=== PATIENT | female | born 2000 | race Caucasian/White ===

== ENCOUNTER 2019-01-14 17:09 | Emergency (ER) | payer MEDICAID, SELFPAY ==
[2019-01-14 17:11] VITALS: BP 132/80; PULSE 114; RESP 17; TEMP 36.7; O2SAT 98; BMI 25.6
--- NOTE | 2019-01-14 17:12 | NURSING ---
NO OLD EKGS
[2019-01-14 17:43] VITALS: O2SAT 100
--- NOTE | 2019-01-14 17:43 | EKG12_ITS ---
Test Reason : CP Blood Pressure : / mmHG Vent. Rate : 099 BPM Atrial Rate : 099 BPM P-R Int : 114 ms QRS Dur : 070 ms QT Int : 334 ms P-R-T Axes : 039 041 025 degrees QTc Int : 428 ms Normal sinus rhythm Low voltage QRS Borderline ECG Confirmed by NELLY HUNG ([id number]), photography editor JENNA GAFFNEY ([id number]) on 01/19/2019 2:47:34 PM Referred By: LUDA Confirmed By:KARIE HUNG
--- NOTE | 2019-01-14 17:53 | US_ITS ---
STUDY: VENOUS DOPPLER ULTRASOUND - RIGHT LOWER EXTREMITY REASON FOR EXAM: Female, 18 years old. Shortness of breath TECHNIQUE: Ultrasound evaluation of the deep vein system to include perrin-scale imaging and compression was performed. Perrin-scale imaging and Doppler sonographic evaluation, including duplex spectral analysis and qualitative color flow sonography, was performed. COMPARISON: None. FINDINGS: Common Femoral Vein: Normal compression, spontaneity and augmentation. Normal color Doppler. Common Femoral Vein/Greater Saphenous Junction: Normal compression, spontaneity and augmentation. Normal color Doppler. Deep Femoral Vein: Normal compression, spontaneity and augmentation. Normal color Doppler. Femoral Proximal: Normal compression, spontaneity and augmentation. Normal color Doppler. Femoral Middle: Normal compression, spontaneity and augmentation. Normal color Doppler. Femoral Distal: Normal compression, spontaneity and augmentation. Normal color Doppler. Popliteal Vein: Normal compression, spontaneity and augmentation. Normal color Doppler. Posterior Tibial Vein: Normal compression, spontaneity and augmentation. Normal color Doppler. Peroneal Vein: Normal compression, spontaneity and augmentation. Normal color Doppler. US/Venous Duplex Imag/Limited/Uni IMPRESSION: Normal venous Doppler ultrasound of the lower extremity. Electronically Signed: Jared Garza, at 19:02 EDT Tel , Service support ,
[2019-01-14 18:29] LABS: Absolute Lymphocyte Count 1.81 X10^3/ul (0.83-4.51); Absolute Neutrophil Count 8.6 X10^3/uL (2.0-7.7); Basophil# 0.01 X10^3/uL; Basophil% 0.1 % (0-1); Eosinophils% 0.9 % (0-5); Hematocrit 31.2 % (37-47); Hemoglobin 10.2 g/dl (12.0-15.0); Lymphocyte # 1.81 X10^3/ul (4.0); Lymphocyte % 15.6 % (19-41); Mean Corp Hgb Conc 32.7 g/gl (32-36); Mean Corpuscular Hgb 28.6 pg (27.0-32.0); Mean Corpuscular Volume 87.4 fL (81-99); Mean Platelet Vol. 9.9 fl (6.2-12.0); Monocyte# 1.03 X10^3/uL; Monocyte% 8.9 % (0-10); Neutrophil # 8.61 X10^3/uL (2.7-7.7); Neutrophil % 74.2 % (47-70); Platelet Count 187 K/mm3 (150-450); RBC Distribution Width CV 13.7 % (11.6-14.6); RBC Distribution Width SD 43.9 fl (35.1-43.9); Red Blood Count 3.57 M/mm3 (4.2-5.4); White Blood Count 11.6 K/mm3 (4.4-11.0)
[2019-01-14 18:33] LABS: POSITIVE COUNT NO; POSITIVE DIFFERENTIAL NO; POSITIVE MORPHOLOGY NO
[2019-01-14 18:53] LABS: Anion Gap 7 (5-15); BUN 6 mg/dL (7-18); BUN/Creat Ratio 11.9 RATIO (10-20); Calcium,Total 8.8 mg/dL (8.5-10.1); Chloride 107 mmol/L (98-107); EST Glomerular Filtration Rate 165 mL/min (>60); Est Glom Filt Rate - Afr Amer 199 mL/min (>60); Estimated Creatinine Clearance 181.05 ml/min; Glucose 87 mg/dL (74-106); Potassium 3.7 mmol/L (3.5-5.1); Sodium Level 138 mmol/L (136-145)
[2019-01-14 19:09] VITALS: BP 106/73; PULSE 95; RESP 10; O2SAT 97
--- NOTE | 2019-01-14 19:19 | ED.DCSUM_ITS ---
- ER Visit Summary Date of Service: 01/14/19 Chief Complaint: Right calf pain History of Present Illness: The patient is a 18 F patient has been waking up almost every night over the past month with right calf pain. She says it seems to be getting worse. Worse with walking. She did have some shortness of breath recently. She is 38 weeks . She was also having some chest pain today. No history of DVTs. No history of heart disease. No fevers or sputum. No trauma. Physical Examination: Afebrile and vital signs are unremarkable. 98% on room air. Heart rate 114. Patient appears in no acute distress. Heart tachycardic but regular appeared lungs clear. Abdomen gravid. Extremities nontender with no edema. Neurovascular intact. Skin appears normal. Test Results: Preliminary duplex ultrasound is negative for DVT. Patient refused chest x-ray. White count 11.6 and hemoglobin 10.2. Metabolic panel and troponin unremarkable. EKG showed sinus rhythm at a rate of 99. Emergency Department Course and Treatment: Patient had symptoms concerning for DVT. Her ultrasound was negative. This makes PE much less likely. Patient did not want any radiation because I could not guarantee 0 risk to her baby. She refused x-ray. I advised that the only way to check for PE would be imaging. Patient declined. She is reassured that there was no DVT. She thinks this might be muscle pain. I agree with her. I advised her that you can have a negative ultrasound but still developed a pulmonary embolism. Patient voiced understanding. She would like to follow-up with her doctor this upcoming week. I advised her to return if she has any new or worsening issues, chest pain, or shortness of breath. Treatment Plan: As above Disposition: Discharge Impression: 1. Right leg pain This note was generated with [employer] dictation software. It may contain incorrect words, spelling, and punctuation that were not noted in review of the chart prior to signing ED Disposition - Plan for ED Patient: Referrals: Peter Mcdermott DO [Primary Care Provider] -
--- NOTE | 2019-01-14 19:19 | ED.DEP ---
ED Disposition - Plan for ED Patient: Instructions: ED Muscle Pain Leg Cramps Additional Instructions: follow up with your doctor
== END 2019-01-14 19:28 | disposition home or self-care (01) ==
LOC: ED 17:53
PROVIDERS: Emergency Provider Emergency Medicine; Family Provider Pediatrics; PCP Pediatrics
DX: O26.893 Other specified pregnancy related conditions, third trimester (principal); M79.604 Pain in right leg; R07.9 Chest pain, unspecified; R00.0 Tachycardia, unspecified; Z86.2 Personal history of diseases of the blood and blood-forming organs and certain disorders involving the immune mechanism; Z3A.38 38 weeks gestation of pregnancy
CPT/HCPCS: 80048; 84484; 85025; 93005; 93971; 99284; J7030; A4216

== ENCOUNTER 2019-02-04 19:00 | Inpatient (IN) | payer MEDICAID, SELFPAY ==
[2019-02-04] MEDS: 0.9% Saline Lock 10 ML Syringe IV (19:46)
[2019-02-04 20:11] LABS: Absolute Lymphocyte Count 1.84 X10^3/ul (0.83-4.51); Absolute Neutrophil Count 9.1 X10^3/uL (2.0-7.7); Basophil# 0.02 X10^3/uL; Basophil% 0.2 % (0-1); Eosinophil# 0.18 X10^3/uL; Eosinophils% 1.5 % (0-5); Hematocrit 32.5 % (37-47); Hemoglobin 10.6 g/dl (12.0-15.0); Lymphocyte # 1.84 X10^3/ul (4.0); Lymphocyte % 15.4 % (19-41); Mean Corp Hgb Conc 32.6 g/gl (32-36); Mean Platelet Vol. 10.2 fl (6.2-12.0); Monocyte% 6.7 % (0-10); Neutrophil # 9.06 X10^3/uL (2.7-7.7); Neutrophil % 75.8 % (47-70); Platelet Count 209 K/mm3 (150-450); RBC Distribution Width CV 13.9 % (11.6-14.6); RBC Distribution Width SD 43.8 fl (35.1-43.9); Red Blood Count 3.78 M/mm3 (4.2-5.4)
[2019-02-04 20:12] LABS: POSITIVE COUNT NO; POSITIVE DIFFERENTIAL NO; POSITIVE MORPHOLOGY NO
[2019-02-04 20:30] VITALS: BMI 26.4
[2019-02-04] MEDS: 0.9% Normal Saline 100 ML IV.SOLN. INTRA-UTER (22:17)
--- NOTE | 2019-02-04 22:40 | PCM.HP.OB ---
History Date of Admission: 02/04/19 Final ZURI: 01/28/19 Gestational age: 41 Weeks and 0 Days History of this : This is a 18 year-old, G 1P0 @ 41 weeks here for IOL. Allergies adhesive tape Allergy (Verified 02/04/19 20:31) Rash chicken derived Allergy (Verified 02/04/19 20:31) Upset Stomach escitalopram [From Lexapro] Allergy (Verified 02/04/19 20:31) Unknown Latex, Natural Rubber Allergy (Verified 02/04/19 20:31) Rash sulfamethoxazole [From Bactrim] Allergy (Verified 02/04/19 20:31) Other trimethoprim [From Bactrim] Allergy (Verified 02/04/19 20:31) Other Home Medications: Home Medications Ferrous Sulfate 325 mg PO DAILY@0800 02/04/19 Pnv No.103/Folic/Om3s/Fish Oil [ Gummies] 1 PO DAILY 02/04/19 Smoking Status: Never smoker Alcohol: None Number of Fetus(es): 1 Heart Tracin mod charity, + accels, no decels TOCO Analysis: irregular- pt only feels occasional contraction History Past Pregnancies: Past Pregnancies Delivery Date Name GA/Weeks Outcome Route Weight Gender Labor Length Anesthesia Delivery Location Provider FOB Labs: O-, HIV neg, HEPB neg, Rub imm, Syphilis neg, GBS neg Expected Infant Delivery Method: Spontaneous Vaginal Review of Systems Constitutional: Denies: Anorexia Respiratory: Denies: Cough Gastrointestinal: Denies: Abdominal Pain Physical Exam General: Alert, Oriented x3 Abdomen: Soft, Non Tender, Gravid Neurological: Cranial nerves II-XII grossly intact BOWLING BALL ENGRAVER: Normal external genitalia Estimated gestational size: Appropriate for gestational size Presentation: Cephalic Cervix Dilation (cm): 1 Station: -3 Effacement (%): 50 Assessment/Plan This is a 18 year-old, @ 41 weeks for IOL for post edc. 1) Gutierrez and Cytotec 2) Monitor fhr/toco 3) epidural if requested for pain 4) anticipate 5) when gutierrez is out will start pitocin.
--- NOTE | 2019-02-04 22:44 | HP.PCM_ITS ---
History Date of Admission: 02/04/19 Final ZURI: 01/28/19 Gestational age: 41 Weeks and 0 Days History of this : This is a 18 year-old, G 1P0 @ 41 weeks here for IOL. Allergies adhesive tape Allergy (Verified 02/04/19 20:31) Rash chicken derived Allergy (Verified 02/04/19 20:31) Upset Stomach escitalopram [From Lexapro] Allergy (Verified 02/04/19 20:31) Unknown Latex, Natural Rubber Allergy (Verified 02/04/19 20:31) Rash sulfamethoxazole [From Bactrim] Allergy (Verified 02/04/19 20:31) Other trimethoprim [From Bactrim] Allergy (Verified 02/04/19 20:31) Other Home Medications: Home Medications Ferrous Sulfate 325 mg PO DAILY@0800 02/04/19 Pnv No.103/Folic/Om3s/Fish Oil [ Gummies] 1 PO DAILY 02/04/19 Smoking Status: Never smoker Alcohol: None Number of Fetus(es): 1 Heart Tracin mod charity, + accels, no decels TOCO Analysis: irregular- pt only feels occasional contraction History Past Pregnancies: Past Pregnancies Delivery Date Name GA/Weeks Outcome Route Weight Gender Labor Length Anesthesia Delivery Location Provider FOB Labs: O-, HIV neg, HEPB neg, Rub imm, Syphilis neg, GBS neg Expected Infant Delivery Method: Spontaneous Vaginal Review of Systems Constitutional: Denies: Anorexia Respiratory: Denies: Cough Gastrointestinal: Denies: Abdominal Pain Physical Exam General: Alert, Oriented x3 Abdomen: Soft, Non Tender, Gravid Neurological: Cranial nerves II-XII grossly intact POWER TOOL REPAIR TECHNICIAN: Normal external genitalia Estimated gestational size: Appropriate for gestational size Presentation: Cephalic Cervix Dilation (cm): 1 Station: -3 Effacement (%): 50 Assessment/Plan This is a 18 year-old, @ 41 weeks for IOL for post edc. 1) Gutierrez and Cytotec 2) Monitor fhr/toco 3) epidural if requested for pain 4) anticipate 5) when gutierrez is out will start pitocin.
[2019-02-05] MEDS: Oxytocin 30 units/NS 500 ml 30 UNITS/500 ML IV.SOLN IV (03:12)
[2019-02-05] MEDS: Nalbuphine 10 MG/ML Ampul IV (03:12)
[2019-02-05] MEDS: Lactated Ringers 1,000 ML 50 ML IV ×5 (03:13→15:30)
[2019-02-05] MEDS: fentaNYL-bupivacaine (epidural) 100 ML BAG EPIDURAL ×2 (05:38→09:51)
--- NOTE | 2019-02-05 08:59 | PCM.PN.BLA ---
Progress Note Comfortable w/ epidural. C/o some leg pain but no pain in abdomen. Cervix 4-5/90/-2, arom w/ return of moderate amount of clear fluid. FHTs normal baseline w/ moderate variability and accels, no recurrent decels. Continue expectant management.
[2019-02-05] MEDS: Acetaminophen 325 MG Tablet PO (10:58)
[2019-02-05] MEDS: Oxytocin 30 units/NS 500 ml 30 UNITS/500 ML IV.SOLN 334 UNITS IV (15:49)
--- NOTE | 2019-02-05 16:08 | PCM.OPRPT ---
Vaginal Delivery Maternal Presentation: Medically Indicated Induction Method of Induction: Amniotomy Medical Reason for Induction: - - 41 weeks Amniotic Membrane Rupture Type: Artificial Amniotic Fluid Description: Clear Final ZURI: 01/28/19 Gestational age: 41 Weeks and 1 Days Date of Procedure: 02/05/19 Pre-Operative Diagnosis: labor Post-Operative Diagnosis: same Surgery/ Procedure Performed: Spontaneous Vaginal Delivery Type of Anesthesia: Epidural Description of Procedure: of vigorous male infant KAREN over small second degree perineal laceration. Remainder of infant delivered w/ one push with minimal downward traction in <15 seconds without difficulty. Spontaneous delivery of placenta intact with 3 vessel cord. Cervix and vagina intact. Second degree laceration repaired with 3 o vicryl rapide suture in a running standard fashion. Sponge and needle count correct. Vaginal sweep completed by me. Presentation: KAREN Placental Delivery Description: Spontaneous Placenta Disposition: [facility] Cord Vessel Description: 3 Vessels Cord Entanglement: None Drain: Dunbar to straight drain Estimated Blood Loss: 200 Infant A gender: Male (1 minute): 9 (5 minute): 9 Episiotomy Description: None Laceration: 2nd degree - perineal Medications given after delivery: IV Pitocin Complications: None
[2019-02-05] MEDS: Oxytocin 30 units/NS 500 ml 30 UNITS/500 ML IV.SOLN 167 UNITS IV (16:20)
[2019-02-05] MEDS: Naproxen 250 MG Tablet 500 MG PO (17:27)
[2019-02-05] MEDS: 0.9% Saline Lock 10 ML Syringe IV (17:28)
[2019-02-05 19:45] VITALS: BP 112/64; PULSE 116; RESP 16; TEMP 36.8; O2SAT 97
[2019-02-06 00:05] VITALS: BP 121/74; PULSE 111; RESP 16; TEMP 36.2; O2SAT 97
[2019-02-06] MEDS: Naproxen 250 MG Tablet 500 MG PO ×2 (02:04→10:15)
[2019-02-06 03:35] VITALS: BP 119/70; PULSE 99; RESP 18; TEMP 36.6; O2SAT 98
[2019-02-06 08:00] VITALS: BP 101/67; PULSE 86; RESP 18; TEMP 36.3; O2SAT 97
[2019-02-06] MEDS: Dibucaine 30 GM Tube 1 APPLIC TOPICAL (08:18)
--- NOTE | 2019-02-06 08:31 | PCM.PN.OB ---
Subjective: pain well controlled, average lochia, - Physical Exam General: Alert, Cooperative, No apparent distress Vital Signs Temp Pulse Resp BP Pulse Ox 97.9 F 99 18 119/70 98 02/06/19 03:35 02/06/19 03:35 02/06/19 03:35 02/06/19 03:35 02/06/19 03:35 Oxygen Delivery Method Room Air Weight: 78.925 kg Body Mass Index (BMI) 26.4 Intake and Output for Last 24 Hours 02/04/19 02/05/19 02/06/19 23:59 23:59 23:59 Intake Total 400 / 400 6028 / 6028 Output Total 3550 / 3550 800 / 800 Balance 400 / 400 2478 / 2478 -800 / -800 Laboratory Tests Past 24 Hrs 02/05/19 18:30 Screen NEGATIVE Baby's Blood Type O POSITIVE Baby's SONJA NEGATIVE Medical Necessity - Tobacco Use Smoking Status: Former smoker Assessment/Plan PPD#1 routine care infant and doing well
[2019-02-06] MEDS: Senna/Docusate Sodium 1 Tablet PO (12:46)
[2019-02-06 12:55] VITALS: BP 106/73; PULSE 101; RESP 18; TEMP 36.8; O2SAT 99
--- NOTE | 2019-02-06 17:15 | CASEMGMT ---
Social Work Assessment Labor and Delivery Unit Date of Referral: 02/05/2019; 02/06/2019 Time of Referral: 1932; 1248 Referred By: Dr. Uriah Boyle Date of Intervention: 02/06/2019 Time of Intervention: 1700 Reason for Referral: 1. maternal history of depression and anxiety 2. PHQ9 score of 16 History obtained from: Medical record, mother of baby (MOB) Zabrina Kim, and father of baby (FOB) Yunior Kim. Household composition: MOB and FOB live with FOB?s parents at this time. FOB has several younger siblings who live in the home. Home situation is reported to be safe and adequate. Patient's parent/guardian status: MOB is 18 year old female to FOB who is 28 years old. since March 2018 and reportedly together since MOB was 16 years old (2 years now). [place] baby boy, Noel Kim, is the first child for both. Was able to speak to MOB privately and MOB denies any form of abuse, control, or intimidation in relationship with FOB. Medical History: MOB is G1, P0 to 1 after delivering baby dashawn Cohen. care started at 12 weeks. care history indicates MOB with history of 3 seizures in the past, related to MOB?s past drug use 5 years ago. Baby dashawn Cohen was born at 9 pounds even. Apgars 9 and 9 at 1 and 5 minutes of life. Educational Status: MOB graduated from high school and reports to have some college classes completed. MOB reports ability to read, write, and to understand what is read. MOB reports history of concussions, and since that time gets migraines which impacts the speediness of MOB?s reading ability. Financial Status: MOB does not currently work outside of the home. FOB reports to be self employed in [employer]. Supplies: MOB and FOB report to have needed baby supplies such as car seat, pack-n-play for sleeping, clothing, diapers, wipes. Plan on breast feeding and has a breast pump. Childcare/Caregiver(s): MOB will be primary caregiver. Help from FOB and family available. Transportation: Both parents drive and transportation is reported to be adequate. Programs/Agencies Involved: MOB has Medicaid through [facility], has WIC, used [facility] [employer] for the car seat program, and reports was working with the care center in [place] throughout this (including parenting classes through this agency). MOB and FOB both open to referral to [facility]. Children Services/Legal Issues: no reports of any history. Behavioral Health Issues: Mental Health History: MOB with history of Generalized Anxiety Disorder and Major Depressive Disorder. MOB reports as a teen did have some thoughts of suicide and did go into treatment. MOB denies any thoughts of suicide since that time, including during this or at present time. MOB describes having a hard time as a teen with many medical issues and that was basically bedbound for 8 years. MOB reports depression and anxiety are triggered by physical hardships and illnesses for MOB. MOB has been through counseling, IOP programs, and has been treated with medication in the past; nothing current. 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 MOB reports was prescribed pain medications due to physical illnesses and as a result did become dependent and addicted. Family History: chart indicates MOB?s father has history of depression Drug Screens: negative maternal drug screen on 07.04.2018. PHQ9: MOB with a score of 16 on depression screening done this admission, indicative of current depressive symptoms in the moderately severe range over the last 2 weeks. No thoughts of suicide reported. MOB has indicated having difficulty with interest, motivation, sleeping, energy, appetite and concentration. MOB describes belief that many of these symptoms have been exacerbated by the end of , a physical hardship, and then labor and delivery process. Worries about being enough for her child and knowing what to do. MOB reports to be feeling better at this present time. MOB reports should symptoms worsen, or impact ability to care for self or the baby would consider alternative interventions such as medication or counseling, agrees to talk with doctor about needs. MOB reports to feel to have adequate supports, to have coping skills in the form of talking, self evaluation, not letting self dwell on things, and praising God. MOB reports past experiences as an adolescent have given MOB perspective on how wants to live life moving forward, which helps MOB refocus on the positives, not dwell. MOB reports talking to FOB is very helpful and helps MOB not to spiral into depression and anxiety. Family/Social Stressors: No reported stressors during , other than the end of causing physical hardship for MOB, which is a trigger to MOB?s depression and anxiety. MOB is reporting to feel better now, just tired, so reports to know that has to make sure getting enough rest as sleeping and eating are important factors in MOB?s physical health. Support Systems: MOB reports FOB, FOB?s parents, and MOB?s family (who live in [place]) are good supports. MOB reports to go and see her family once a week. Depression/Shaken Baby/Safe Sleeping : Safe sleeping and shaken baby prevention discussed. Educated to depression and anxiety , risk factors present, importance of self care and letting other helps, as well as talking with health care team should symptoms worsen. ASSESSMENT: Met with MOB and FOB together and then with MOB alone. Alone with MOB reviewed PHQ9 screen, domestic violence topic, and whether there was anything else MOB felt the need to talk about or discuss privately. MOB reports to be open with FOB, that FOB is aware of MOB?s past drug history and has been supportive to MOB in their relationship. MOB held good eye contact, affect appropriate, mood congruent, attentive to baby and handled baby gently. MOB agrees to talk with doctor should mental health symptoms change as MOB is not yet ready to try medications again and reports to be feeling better physically. MOB reports to be feeling good about the baby and to love the baby. MOB self aware of need to get sleep and take care of self. MOB and FOB both engaged in conversation about various supports for mood issue and self care. MOB reports to have adequate support, to have baby supplies, and was accepting of resources offered. MOB educated to local and online supports for mental health and had this keno writer / runner star the hospital?[facility] IOP program, as MOB has been in IOP before with positive results. MOB and FOB agree to [facility] [place] referral as well. Safe Plan of Care for infant related to substance use: MOB states to have 3 years sober, no intention of ever returning to substance use and states thankful this is in her past. PLAN: MOB and baby to discharge home. Mental health resources provided, packet on mood and anxiety issues given that includes some online supports, Information on [facility] programs given, and a resource packet for [facility] public health social worker agencies. [facility] [place] referral to be made. -AROLDO Nicholas, AIRCRAFT CLEANER
[2019-02-06 18:00] VITALS: BP 108/61; PULSE 77; RESP 18; TEMP 36.6; O2SAT 99
[2019-02-06 19:50] VITALS: BP 114/78; PULSE 101; RESP 18; TEMP 36.3; O2SAT 99
[2019-02-07 02:15] VITALS: BP 94/56; PULSE 95; RESP 18; TEMP 36.4; O2SAT 97
[2019-02-07] MEDS: Naproxen 250 MG Tablet 500 MG PO ×2 (05:56→16:06)
[2019-02-07] MEDS: Senna/Docusate Sodium 1 Tablet PO (05:56)
--- NOTE | 2019-02-07 09:29 | PCM.PN.OB ---
Subjective: Pt doing well. No CP, SOB, lightheadedness, dizziness, leg pain. Ambulating and voiding without difficulty. Candida reg diet without N/V. Lochia normal. She feels ready to go home - Physical Exam General: Alert, No apparent distress HEENT: Atraumatic Lungs: - - No increased resp effort Abdomen: Soft, - - ATTP, FF Extremities: No edema, No Calf Tenderness Skin: No rashes Neurological: Neuro grossly intact Psych/Mental Status: Normal Affect, Appropriate Vital Signs Temp Pulse Resp BP Pulse Ox 97.6 F L 95 18 94/56 L 97 02/07/19 02:15 02/07/19 02:15 02/07/19 02:15 02/07/19 02:15 02/07/19 02:15 Oxygen Delivery Method Room Air Weight: 174 lb Body Mass Index (BMI) 26.4 Intake and Output for Last 24 Hours 02/05/19 02/06/19 02/07/19 23:59 23:59 23:59 Intake Total 6028 / 6028 Output Total 3550 / 3550 800 / 800 Balance 2478 / 2478 -800 / -800 Medical Necessity - Tobacco Use Smoking Status: Former smoker Assessment/Plan PPD#2 s/p - Doing well and feels ready to go home - D/c home today and discharge instructions reviewed
--- NOTE | 2019-02-07 09:33 | DCINST_ITS ---
Discharge Diet: No Restrictions Discharge Activity: Return to Normal Activity, May Shower, May Take a Tub Bath May resume sexual activity in: 6 weeks Weight Bearing Status: Full weight bearing Lifting Restrictions: None Call your doctor if you observe: Fever of 101 or Higher, Inability to urinate, Inability to have a bowel movement, Using more than one pad per hour, Shortness of breath, Dizziness, Chest pain, Increased palpitations (irregular heartbeat), Calf discomfort, Uncontrolled pain Cleanse incision/area with: Soap & Water Instructions: After a Vaginal Additional Instructions: If you experience any of the following, contact your healthcare provider. * Bleeding that soaks a pad every hour for 2 hours * Fever 100.4 or higher * Unrelieved incision or abdominal pain * Swelling, redness, discharge or bleeding from your incision or episiotomy site * Your incision begins to separate * Problems urinating (including inability to urinate or burning while urinating). * Visual changes * Severe headache * Flu-like symptoms * Pain or redness in one of both of your breasts * Pain, warmth, tenderness or swelling in your legs, especially the calf area * Frequent nausea and vomiting * Symptoms of depression or anxiety If you experience any of the following, call 911 or go to the nearest Emergency Room. * Chest pain * Problems breathing * Seizure activity * Partial or complete paralysis of a body part, slurred speech, weakness or drooping of the face, or a sudden inability to walk or hold your balance Allergies/Adverse Reactions: Allergies adhesive tape Allergy (Verified 02/04/19 20:31) Rash chicken derived Allergy (Verified 02/04/19 20:31) Upset Stomach escitalopram [From Lexapro] Allergy (Verified 02/04/19 20:31) Unknown Latex, Natural Rubber Allergy (Verified 02/04/19 20:31) Rash sulfamethoxazole [From Bactrim] Allergy (Verified 02/04/19 20:31) Other trimethoprim [From Bactrim] Allergy (Verified 02/04/19 20:31) Other Medications to take at Discharge Ferrous Sulfate 325 mg PO DAILY@0800 02/04/19 Pnv No.103/Folic/Om3s/Fish Oil [ Gummies] 1 PO DAILY 02/04/19 When: 2 weeks and 6 weeks for visits. Primary Care Physician: Mcdermott,Peter, DO [Primary Care Provider] - Test Results: Test results from this visit will be discussed in further detail at your follow- up appointment, if applicable. Proposed Discharge Date: 02/07/19
--- NOTE | 2019-02-07 09:41 | PCM.DC.SUM ---
Discharge Date and Diagnosis - Problem List Patient Problems: Active and Suspected Problems (Last Updated 02/04/19 @ 22:41 by Luzmaria Alexander MD) 41 weeks gestation of (Acute) Date of Admission: 02/04/19 Date of Discharge: 02/07/19 Hospital Course and Treatment Procedures: - - Vaginal delivery Summary of Care Provided: The patient is a 18 year old F who presented on 02/04/19 for an IOL for 41 wk gestation. She was a gutierrez, cytotec induction. Had a spontaneous vaginal delivery on 02/05/19. See delivery note for details. She did well and was discharged home on day 2 in good condition. Patient Problems: Active and Suspected Problems (Last Updated 02/04/19 @ 22:41 by Luzmaria Alexander MD) 41 weeks gestation of (Acute) - Physical Exam Vital Signs Temp Pulse Resp BP Pulse Ox 97.6 F L 95 18 94/56 L 97 02/07/19 02:15 02/07/19 02:15 02/07/19 02:15 02/07/19 02:15 02/07/19 02:15 Oxygen Delivery Method Room Air Weight: 174 lb Body Mass Index (BMI) 26.4 Intake and Output for Last 24 Hours 02/05/19 02/06/19 02/07/19 23:59 23:59 23:59 Intake Total 6028 / 6028 Output Total 3550 / 3550 800 / 800 Balance 2478 / 2478 -800 / -800 Discharge Diet: No Restrictions Discharge Activity: Return to Normal Activity, May Shower, May Take a Tub Bath May resume sexual activity in: 6 weeks Weight Bearing Status: Full weight bearing Call your doctor if you observe: Fever of 101 or Higher, Inability to urinate, Inability to have a bowel movement, Using more than one pad per hour, Shortness of breath, Dizziness, Chest pain, Increased palpitations (irregular heartbeat), Calf discomfort, Uncontrolled pain Cleanse incision/area with: Soap & Water Home Medications: Medications to take at Discharge Ferrous Sulfate 325 mg PO DAILY@0800 02/04/19 Pnv No.103/Folic/Om3s/Fish Oil [ Gummies] 1 PO DAILY 02/04/19 Primary Care Physician: Mcdermott,Peter, DO [Primary Care Provider] - Patient Instructions: After a Vaginal Medical Necessity - Tobacco Use Smoking Status: Former smoker Meaningful Use Info Meaningful Use Diagnoses (Choose all that apply): None applicable
[2019-02-07 10:00] VITALS: BP 102/65; PULSE 91; RESP 16; TEMP 36.8
[2019-02-07 16:00] VITALS: BP 124/76; PULSE 106; RESP 16; TEMP 36.8
--- NOTE | 2019-02-07 18:58 | NURSING ---
1820 Discharged to home with via wheelchair to car. States she wants to go home and feels able to care for herself and her .
--- NOTE | 2019-02-11 15:17 | CASEMGMT ---
Social Work Labor and Delivery [facility] referral completed via secure web based referal system through [facility]. Referral completed per mother of baby's verbal permission. -LATASHA Nicholas, DRIVER MEDIC
== END 2019-02-07 18:20 | disposition home or self-care (01) | DRG 560 ==
PROVIDERS: Obstetrics & Gynecology; Admitting Provider Obstetrics & Gynecology; Family Provider Pediatrics; PCP Pediatrics; Referring Provider Obstetrics & Gynecology; Visit Provider Obstetrics & Gynecology
DX: O48.0 Post-term pregnancy (principal); O70.1 Second degree perineal laceration during delivery; Z79.899 Other long term (current) drug therapy; Z87.891 Personal history of nicotine dependence; Z3A.41 41 weeks gestation of pregnancy; Z37.0 Single live birth
CPT/HCPCS: 59050; 85025; 85461; 86850; 86900; 90384; 99218; J7120; A4216; G0378; J2790

== ENCOUNTER 2020-07-27 11:25 | Emergency (ER) | payer MEDICAID, SELFPAY ==
[2020-07-27 11:27] VITALS: BP 132/78; PULSE 123; RESP 20; TEMP 36.4; O2SAT 99; BMI 19.4
[2020-07-27 11:33] VITALS: BP 132/78; PULSE 114; PULSE 118; RESP 20; TEMP 36.4; O2SAT 98
--- NOTE | 2020-07-27 11:42 | ED.DCSUM_ITS ---
History of Present Illness Chief Complaint: Nausea/Vomiting Informant: Patient Narrative: 19-year-old female presents at approximately 10 weeks stating she is having nausea and vomiting. She tells me that she has been wanting to do the B6 and Unisom but she has recently been diagnosed as Covid so she has been trying to quarantine and not able to get to the pharmacy. She tells me that because of her nausea and vomiting her doctor sent her in to get IV fluids. We did receive a call from their clinic stating that she was Covid positive and the infusion center would not see her because of that. Patient denies any fever or diarrhea.She tells me that she has been doing okay with water. She had hyperemesis gravidarum with 1. Past Medical History - Allergies and Home Meds Allergies/Adverse Reactions: Allergies adhesive tape Allergy (Verified 07/27/20 11:27) Rash escitalopram [From Lexapro] Allergy (Verified 07/27/20 11:27) Unknown Latex, Natural Rubber Allergy (Verified 07/27/20 11:27) Rash sulfamethoxazole [From Bactrim] Allergy (Verified 07/27/20 11:27) Other trimethoprim [From Bactrim] Allergy (Verified 07/27/20 11:27) Other Primary Care Physician: Peter Mcdermott DO [Primary Care Provider] - Past Medical History: - - Hyperemesis gravidarum Surgical History: noncontributory Lives: Spouse/ Significant Other, With Family Smoking Status: Former smoker Alcohol: None Drugs: None Review of Systems General: Reports: Malaise. Denies: Chills, Fever, Sweats Eyes: Denies: Visual changes - bilaterally, Diplopia ENT: Denies: Rhinorrhea, Sore throat Cardiovascular: Denies: Chest pain, Palpitations Respiratory: Denies: Dyspnea, Cough, Dyspnea on exertion Gastrointestinal: Reports: Nausea, Vomiting. Denies: Abdominal pain, Diarrhea, Melena, Hematochezia Genitourinary: Denies: Dysuria, Hematuria, Frequency Musculoskeletal: Denies: Back pain, Extremity Pain Skin: Denies: Rash, Wounds Neurological: Denies: Headache, Weakness, Numbness Physical Exam Vital Signs/Narrative: Vital Signs Temp Pulse Resp BP Pulse Ox 07/27/20 11:33 97.5 F L 118 H 20 H 132/78 H 98 07/27/20 11:27 97.5 F L 123 H 20 H 132/78 H 99 Inital Vital Signs reviewed: Yes General: Well nourished, Well developed, No Acute Distress Head: Normocephalic, Atraumatic Eyes: Perrl, EOMI ENT: Moist mucous membranes, No rhinorrhea Neck: Supple, Nontender Cardiovascular: Regular rate, No murmurs, Tachycardia Respiratory: No distress, CTA bilaterally, Chest nontender Abdomen: Soft, Nontender, Nondistended, Normal bowel sounds Back: Nontender, Normal Inspection Extremities: Nontender, No edema Skin: Normal color, No rash Neurological: Alert, Oriented x3, Cranial nerves II-XII grossly intact, Normal Strength, Normal Sensation Psychological: Normal affect, Normal Mood Diagnostic/Tx/Re-eval - Medical Decision Making Patient will be given Zofran and 2 L of IV fluids. I can write a prescription for Zofran. Patient to follow-up with OB. ED Disposition - Plan for ED Patient: Disposition: Home or Assisted Living Diagnosis: Hyperemesis gravidarum Instructions: ED Preg Morning Sickness Prescriptions: Ondansetron [Zofran Odt] 4 mg PO Q6H PRN PRN #20 tab PRN Reason: Nausea Prescription Printed Referrals: Peter Mcdermott DO [Primary Care Provider] - As Needed Pat Garsia CNM [Certified Nurse Sales Representative [employer]] - Keep Bri appointment
[2020-07-27] MEDS: Ondansetron 4 MG/2 ML Vial IV (11:53)
[2020-07-27] MEDS: 0.9% Normal Saline 1,000 ML 1000 ML IV ×2 (11:53→13:01)
[2020-07-27 14:27] VITALS: BP 120/70; PULSE 80; RESP 16; O2SAT 98
== END 2020-07-27 14:28 | disposition home or self-care (01) ==
LOC: ED 12:25
PROVIDERS: Emergency Provider Emergency Medicine; PCP Pediatrics
DX: O21.0 Mild hyperemesis gravidarum (principal); O98.511 Other viral diseases complicating pregnancy, first trimester; U07.1 COVID-19; Z3A.10 10 weeks gestation of pregnancy
CPT/HCPCS: 96361; 96374; 99283; J7030; A4216; J2405

== ENCOUNTER 2021-02-27 15:45 | Inpatient (IN) | payer MEDICAID, SELFPAY ==
[2021-02-27] VITALS (12 sets, daily range): BP systolic 109–128; BP diastolic 74–101; PULSE 102–127; RESP 18; TEMP 36.5–37.1; O2SAT 80–99; BMI 25.8
[2021-02-27] MEDS: Lactated Ringers 1,000 ML 50 ML IV (17:00)
--- NOTE | 2021-02-27 17:12 | HP.PCM.OB_ITS ---
HPI - General General Date of Admission: 02/27/21 HPI Narrative DEDE DUNN, is a 20 F who presents 40 weeks 3 days by LMP. Seen in office today for growth ultrasound. Patient had declined IOL at 41 weeks and was getting postdates evaluation. During ultrasound no movement or tone and BPP 4/8. Decision for induction of labor due to nonreassuring testing and postdates. Offers no complaints today. Maternal Data Information Final ZURI: 02/24/21 Final ZURI Source: LMP Gestational age: 40w3d [facility] Medical History (Updated 02/27/21 @ 18:19 by Pat Garsia CNM) Anxiety Depression Migraine Home Medications PNV [id number] oil [ Gummies] 1 tab PO DAILY 02/04/19 [History Last Taken 02/26/21 21:00] Magnesium 500 mg PO DAILY 07/27/20 [History Last Taken 02/26/21 21:00] Vitamin D (with calcium) 2,000 mcg PO/SL DAILY 02/27/21 [History Last Taken 02/26/21 21:00] famotidine [Pepcid] 20 mg PO BID 02/27/21 [History Last Taken 02/27/21 08:00] ondansetron HCl [Zofran] 4 mg PO Q4H PRN 02/27/21 [History Last Taken 02/27/21 13:00] promethazine [Phenergan] 25 mg PO Q6H PRN 02/27/21 [History Last Taken 02/26/21 21:00] Allergy/AdvReac Type Severity Reaction Status Date / Time adhesive tape Allergy Rash Verified 07/27/20 11:27 escitalopram [From Lexapro] Allergy Unknown Verified 07/27/20 11:27 Latex, Natural Rubber Allergy Rash Verified 07/27/20 11:27 sulfamethoxazole Allergy Other Verified 07/27/20 11:27 [From Bactrim] trimethoprim [From Bactrim] Allergy Other Verified 07/27/20 11:27 Social History Smoking Status: Former smoker History Elective abortions Hx Para 1 Spontaneous abortions Hx # Term Pregnancies Ectopic pregnancies Hx # Pregnancies Multiple births # of living children NST FHR Rate Baby A Baseline: 130 Variability:: Moderate Accelerations:: 15 x 15 Decelerations:: None FHR Category:: Category I Uterine Activity:: Irregular ROS Constitutional Constitutional: Reports systems reviewed and no addt'l complaints, except as documented; Denies headache(s) Eyes Eyes: Denies acute decrease in peripheral vision, blurry vision or change in vision ENT HEENT: Reports systems reviewed and no addt'l complaints, except as documented Cardiovascular Cardiovascular: Denies chest pain or dizziness Respiratory/Chest Respiratory/Chest: Denies cough, dyspnea, dyspnea on exertion, shortness of breath at rest or shortness of breath with exertion Gastrointestinal Gastrointestinal: Denies abdominal pain, diarrhea, nausea or vomiting Genitourinary Genitourinary: Denies abdominal discomfort or movement Musculoskeletal Musculoskeletal: Denies limited range of motion Integumentary Integumentary: Reports systems reviewed and no addt'l complaints, except as documented Neurologic Neurologic: Reports systems reviewed and no addt'l complaints, except as documented Psychiatric Psychiatric: Reports systems reviewed and no addt'l complaints, except as documented Endocrine Endocrinology: Reports systems reviewed and no addt'l complaints, except as documented Hematologic/Lymphatic Hematologic/Lymphatic: Reports systems reviewed and no addt'l complaints, except as documented Allergic/Immunologic Allergic/Immunologic: Reports systems reviewed and no addt'l complaints, except as documented Vital Signs Vital Signs Vital Signs: Weight Weight: 175 lb 0.752 oz Body Mass Index (BMI) 25.8 Physical Exam Const alert and oriented x3 General Appearance: cooperative Orientation / Consciousness: awake, oriented to person, oriented to place and oriented to time Exam Limitations: no limitations HEENT normocephalic Head and Scalp: normal to inspection, normocephalic and atraumatic Face and Sinus: normal facial exam Eyes General Eye: normal appearance of both eyes Neck full ROM Chest Chest: symmetrical chest wall rise Resp normal respiratory effort and normal air movement Auscultation: clear to auscultation bilaterally Cardio regular rate, regular rhythm, S1 normal heart sound, S2 normal heart sound, no murmurs, no rub, no gallops and no clicks GI normal to inspection, nondistended, normoactive bowel sounds and non-tender appearance of the vagina normal Bladder / Kidney Exam: no CVA tenderness Manual OB Exam: estimated gestational size appropriate, presentation cephalic, dilated 4 cm, effaced 50 and station -2 Back/Spine normal ROM Extremity normal to inspection and full ROM Skin no rashes or lesions noted Neuro oriented x3, CN's II-XII intact bilaterally and moves all extremities Sensorium / Orientation: awake, alert and oriented to person Motor Exam: clonus absent Deep Tendon Reflexes: Rt Patellar (L4): 2+ and Lt Patellar (L4): 2+ Labs Labs Labs: Blood Type O NEGATIVE Antibody Screen NEGATIVE Hct 33.8 % (37-47) L Hgb 10.7 g/dL (12.0-15.0) L Rhogam given: Yes Placenta anterior fundal RPR negative 1hr GCT 70, nml Cystic fibrosis negative [id number] negative Rubella immune HIV negative HBsAG negative HepC negative O negative Urine tox screen negative Assessment & Plan (1) Post-dates : (2) Encounter for induction of labor: (3) Decreased movement: (4) History of delivery of macrosomal : (5) History of depression: (6) Generalized anxiety disorder: (7) Rh negative state in antepartum period: (8) Chronic headache: PLAN: 1) Admit to labor and delivery for induction of labor 2) BPP 4/8, induction of labor with pitocin. Reviewed risks, benefits, and plan. 3) Routine labs 4) Continuous EFM 5) notified of patient status and plan of care.
[2021-02-27 17:43] LABS: Absolute Neutrophil Count 8.9 X10^3/uL (2.0-7.7); Basophil# 0.03 X10^3/uL; Basophil% 0.3 % (0-1); Eosinophil# 0.04 X10^3/uL; Eosinophils% 0.3 % (0-5); Hematocrit 33.8 % (37-47); Hemoglobin 10.7 g/dL (12.0-15.0); Lymphocyte % 15.6 % (19-41); Mean Corp Hgb Conc 31.7 g/dL (32-36); Mean Corpuscular Hgb 26.7 pg (27.0-32.0); Mean Corpuscular Volume 84.3 fL (81-99); Mean Platelet Vol. 10.4 fl (6.2-12.0); Monocyte# 0.73 X10^3/uL; Monocyte% 6.3 % (0-10); NRBC Flagged by Analyzer 0 % (0-5); Neutrophil # 8.89 X10^3/uL (2.7-7.7); Neutrophil % 76.9 % (47-70); Platelet Count 264 K/mm3 (150-450); RBC Distribution Width CV 13.6 % (11.6-14.6); RBC Distribution Width SD 41.5 fl (35.1-43.9); Red Blood Count 4.01 M/mm3 (4.2-5.4); White Blood Count 11.6 K/mm3 (4.4-11.0)
[2021-02-27] MEDS: 0.9% Normal Saline Single 100 ML IV.SOLN. INTRA-UTER (18:09)
[2021-02-27] MEDS: Lactated Ringers 500 ML 999 ML IV ×2 (19:39→21:45)
[2021-02-27] MEDS: 0.9% Saline Lock 10 ML Syringe IV (20:08)
[2021-02-27] MEDS: Ondansetron 4 MG/2 ML Vial IV (20:08)
--- NOTE | 2021-02-27 21:20 | PCM.PROGNOTE ---
Subjective Subjective Resting in bed, at bedside. Comfortable and breathing with contractions. Objective Data Objective Data Vital Signs: Vital Signs Temp Pulse BP Pulse Ox 97.7 F L 102 H 112/74 98 02/27/21 20:58 02/27/21 21:01 02/27/21 21:00 02/27/21 21:01 Weight: 175 lb 0.752 oz Body Mass Index (BMI) 25.8 Lab / Micro Data Result Diagrams: 02/27/21 17:00 Labs: Laboratory Results - last 24 hr 02/27/21 02/27/21 02/27/21 17:00 17:00 17:00 WBC 11.6 H RBC 4.01 L Hgb 10.7 L Hct 33.8 L MCV 84.3 MCH 26.7 L MCHC 31.7 L RDW Std Deviation 41.5 RDW Coeff of Esequiel 13.6 Plt Count 264 MPV 10.4 Immature Gran % (Auto) 0.600 Neut % (Auto) 76.9 H Lymph % (Auto) 15.6 L Meagher % (Auto) 6.3 Eos % (Auto) 0.3 Baso % (Auto) 0.3 Absolute Neuts (auto) 8.9 H Absolute Lymphs (auto) 1.80 Nucleated RBC % 0 Blood Type O NEGATIVE Antibody Screen TNP NEGATIVE Micro: Microbiology 02/27/21 17:30 Mucosa - Nose SARS-CoV-2 Antigen (Rapid) - Final Physical Exam Narrative FHT 140, minimal variability, no accels, variable decel, Category 2 TOCO: every 2-4 minutes, mild AROM moderate amount of clear fluid. IUPC and FSE placed Cervix 5cm/80%/-1 Assessment & Plan Assessment/Plan (1) Post-dates : (2) Encounter for induction of labor: PLAN: 1) AROM, IUPC and FSE. Unable to start pitocin due to minimal variability with no accelerations. Reviewed option of AROM and in depth conversation with patient about risks and benefits. All questions answered and agreed to AROM. Reviewed possibility of intolerance and need for section, patient questions answered. 2) Discussed amnioinfusion as another option if patient still with minimal variability. Reviewed need for section if heart rate not improved and risks of continued labor and intolerance. 3) notified of patient labor and status and plan of care. Agrees with plan of care.
[2021-02-27] MEDS: Amnioinfusion- 0.9% NS 1,000 ML IV.SOLN. INTRA-UTER (21:24)
[2021-02-28] VITALS (21 sets, daily range): BP systolic 99–138; BP diastolic 61–88; PULSE 48–114; RESP 14–18; TEMP 36.4–37.2; O2SAT 82–97
[2021-02-28] MEDS: Lactated Ringers 500 ML 999 ML IV (00:06)
[2021-02-28] MEDS: Oxytocin 30 units/NS 500 ml 30 UNITS/500 ML IV.SOLN 334 UNITS IV (00:23)
--- NOTE | 2021-02-28 00:50 | EX.PCM.OBRPT ---
Assessment & Plan (1) (normal spontaneous vaginal delivery): Maternal Data Information Final ZURI: 02/24/21 Final ZURI Source: LMP Gestational age: 40w4d Vaginal Delivery Maternal Presentation Maternal Presentation: Medically Indicated Induction Type of Induction: Amniotomy Medical Reason for Induction: - (BPP 4/8) Operative Information Date of Procedure: 02/28/21 Pre-Operative Diagnosis: Induction of labor Post-Operative Diagnosis: Surgery / Procedure Performed: Spontaneous Vaginal Delivery Type of Anesthesia: None Estimated Blood Loss: 200 ml Time of Delivery: 00:19 Findings Description of Procedure: Progressed to complete with strong urge to push. Using nitrous for pain. Uncontrolled and difficulty having patient focus. Maternal spontaneous pushing efforts with rapid delivery of infant head, body forthcoming with nuchal hand. Placed on maternal abdomen, mouth and nares suctioned for secretions, no cry. As clamping and cutting cord good strong cry. Infant handed to awaiting nursery staff. Pitocin started for active 3rd stage management. Placenta delivered intact, via lashae with expression. Perineum inspected and intact, no repair needed. Fundus firm, hemostasis achieved. Mom and baby stable, family bonding well. Planning to breastfeed. notified. Presentation: Vertex Amniotic Membrane Rupture Type: Artificial Amniotic Fluid Description: Clear Placental Delivery Description: Expressed Placenta Disposition: [facility] Cord Vessel Description: 3 Vessels Cord Entanglement: None Infant A Gender: Male (1 minute): 8 (5 minute): 9 Delayed Cord Clamping: No Post Vaginal Delivery Medications Given After Delivery: IV Pitocin Episiotomy Description: None Laceration: None Complication Complications: None
[2021-02-28] MEDS: Ibuprofen 600 MG Tablet PO ×2 (01:22→19:28)
[2021-02-28] MEDS: Benzocaine/Lanolin/Aloe Vera 1 SPRAY EACH TOPICAL (02:47)
[2021-02-28] MEDS: Prenatal Vits Tablet 1 TABLET PO (14:53)
[2021-02-28] MEDS: Acetaminophen 500 MG Tablet 1000 MG PO (21:06)
[2021-03-01] MEDS: Ibuprofen 600 MG Tablet PO ×2 (01:02→09:27)
[2021-03-01 01:25] VITALS: BP 108/69; PULSE 94; RESP 16; TEMP 36.1; O2SAT 99
[2021-03-01] MEDS: Acetaminophen 500 MG Tablet 1000 MG PO (04:22)
[2021-03-01 08:02] VITALS: BP 95/62; PULSE 83; RESP 16; TEMP 36.4
--- NOTE | 2021-03-01 08:27 | PCM.PN.OB ---
Subjective Subjective patient seen at bedside, doing well. Patient reports good pain control. lochia mild. Objective Data Objective Data Vital Signs: Vital Signs Temp Pulse Resp BP Pulse Ox 97.5 F L 83 16 95/62 99 03/01/21 08:02 03/01/21 08:02 03/01/21 08:02 03/01/21 08:02 03/01/21 01:25 Oxygen Delivery Method Room Air Weight: 79.4 kg Body Mass Index (BMI) 25.8 Intake & Output: Intake and Output for Last 24 Hours 02/27/21 02/28/21 03/01/21 23:59 23:59 23:59 Intake Total 1450 / 1450 1820.00 / 1820.00 Output Total 1700 / 1700 600 / 600 Balance -250 / -250 1220.00 / 1220.00 Lab / Micro Data Result Diagrams: 02/27/21 17:00 Micro: Microbiology 02/27/21 17:30 Mucosa - Nose SARS-CoV-2 Antigen (Rapid) - Final Physical Exam Const alert and oriented x3 General Appearance: cooperative HEENT normocephalic Neck General: normal visual inspection GI soft to palpation and non-distended GI Narrative: Fundus firm Extremity normal to inspection and no calf tenderness Skin no rashes or lesions noted Neuro oriented x3 and CN's II-XII intact bilaterally Psych mental status grossly normal Assessment & Plan (1) (normal spontaneous vaginal delivery): PLAN: PPD# 2 , Doing well Routine care pain mgmt ambulation dc home
--- NOTE | 2021-03-01 08:27 | PCM.DC ---
Discharge Instructions Diet Discharge Diet: No restrictions Activity May resume sexual activity in: 6-8 weeks Dressing / Incision Call your doctor if you observe: Fever of 101 or Higher, Inability to urinate, Using more than 1 pad per hour and Uncontrolled pain Follow Up Care Please Follow Up With: Luzmaria Alexander MD When: 1-2 weeks post and again at 6 weeks post . [phone] Test Results: Test results from this visit will be discussed in further detail at your follow-up appointment, if applicable. Discharge Plan Admission Admit Date/Time: 02/27/21 15:45 Attending Provider: Pat Garsia Primary Care Provider: Peter Mcdermott Discharge Orders/Prescriptions Prescriptions: New acetaminophen 500 mg Tablet 1,000 mg PO Q6H PRN PRN (Reason: Pain 1-10 Or Fever) Qty: 0 RF: 0 ibuprofen 600 mg Tablet 600 mg PO Q6H PRN PRN (Reason: Pain Score 1-3) Qty: 0 RF: 0 Continued with DHA-Folic Acid 1 EACH tablet,chewable 1 tab PO DAILY RF: 0 Magnesium 500 mg PO DAILY RF: 0 famotidine [Pepcid] 20 mg Tablet 20 mg PO BID RF: 0 Vitamin D (with calcium) 2,000 mcg PO/SL DAILY RF: 0 Discontinued ondansetron HCl [Zofran] 4 mg Tablet 4 mg PO Q4H PRN (Reason: Nausea) RF: 0 promethazine [Phenergan] 25 mg Tablet 25 mg PO Q6H PRN (Reason: Nausea And Vomiting) RF: 0 Referrals / Follow Up: Peter Mcdermott DO [Primary Care Provider] -
[2021-03-01] MEDS: Prenatal Vits Tablet 1 TABLET PO (09:28)
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
== END 2021-03-01 12:45 | disposition home or self-care (01) | DRG 560 ==
PROVIDERS: Admitting Provider Advanced Practice Midwife; PCP Pediatrics; Visit Provider Advanced Practice Midwife
DX: O48.0 Post-term pregnancy (principal); O62.3 Precipitate labor; O76 Abnormality in fetal heart rate and rhythm complicating labor and delivery; O36.8130 Decreased fetal movements, third trimester, not applicable or unspecified; Z67.41 Type O blood, Rh negative; Z20.822 Contact with and (suspected) exposure to COVID-19; Z87.891 Personal history of nicotine dependence; Z3A.40 40 weeks gestation of pregnancy; Z37.0 Single live birth
CPT/HCPCS: 59025; 59050; 85025; 85461; 86850; 86900; 86901; 87426; 90384; 99218; J7030; J7120; A4216; G0378; J2405; J2790

== ENCOUNTER 2022-07-06 17:37 | Emergency (ER) | payer MEDICAID, SELFPAY ==
[2022-07-06 17:38] VITALS: BP 93/64; PULSE 124; RESP 18; TEMP 36.8; O2SAT 99; BMI 19.6
[2022-07-06] MEDS: 0.9% Normal Saline 1,000 ML 1000 ML IV (18:38)
[2022-07-06] MEDS: Ondansetron 4 MG/2 ML Vial IV (18:38)
[2022-07-06 18:47] LABS: Absolute Lymphocyte Count 0.95 X10^3/uL (0.83-4.51); Absolute Neutrophil Count 7.4 X10^3/uL (2.0-7.7); Basophil# 0.01 X10^3/uL; Basophil% 0.1 % (0-1); Eosinophil# 0.01 X10^3/uL; Eosinophils% 0.1 % (0-5); Hematocrit 36.8 % (37-47); Hemoglobin 12.3 g/dL (12.0-15.0); Lymphocyte # 0.95 X10^3/ul (0.83-4.51); Lymphocyte % 10.6 % (19-41); Mean Corp Hgb Conc 33.4 g/dL (32-36); Mean Corpuscular Hgb 29.6 pg (27.0-32.0); Mean Corpuscular Volume 88.7 fL (81-99); Monocyte# 0.57 X10^3/uL; Monocyte% 6.3 % (0-10); NRBC Flagged by Analyzer 0 % (0-5); Neutrophil # 7.39 X10^3/uL (2.7-7.7); Neutrophil % 82.3 % (47-70); Platelet Count 224 K/mm3 (150-450); RBC Distribution Width CV 13.6 % (11.6-14.6); RBC Distribution Width SD 44.2 fl (35.1-43.9); Red Blood Count 4.15 M/mm3 (4.2-5.4)
[2022-07-06 19:06] LABS: ALB/GLOB Ratio 0.9 RATIO (0.9-2.4); AST(SGOT) 22 U/L (15-37); Alanine Aminotransfer ALT/SGPT 26 U/L (13-56); Albumin, Serum 3.1 g/dL (3.2-5.0); Alkaline Phosphatase 61 U/L (45-117); Anion Gap 9 (5-15); BUN 11 mg/dL (7-18); BUN/Creat Ratio 19.6 RATIO (10-20); Calcium,Total 8.8 mg/dL (8.5-10.1); Chloride 104 mmol/L (98-107); Creatinine, Serum 0.56 mg/dL (0.55-1.02); EST Glomerular Filtration Rate 142 mL/min (>60); Est Glom Filt Rate - Afr Amer 171 mL/min (>60); Estimated Creatinine Clearance 148.98 ml/min; Globulin 3.5 g/dL (2.2-4.2); Glucose 87 mg/dL (74-106); Potassium 3.7 mmol/L (3.5-5.1); Protein, Total 6.6 g/dL (6.4-8.2); Sodium Level 139 mmol/L (136-145)
--- NOTE | 2022-07-06 19:15 | EX.ED.DYSGE1 ---
HPI History of Present Illness Chief Complaint: Abd Pain Informant: patient Narrative Narrative: This is a very plan 21-year-old female presenting to the emergency room with nausea and vomiting. She has a history of hyperemesis gravidarum. She is approximately 15 weeks. She takes several medications including Zofran for nausea. Yesterday she wonders if she got food poisoning as she had some soup that was a week old. She has been vomiting since. No diarrhea however. She notes decreased urination. She is Rh-. She denies any fever. No bleeding or leakage of fluid. [facility] Medical History Anxiety Asthma Depression Fibromyalgia Migraine Home Medications 103-folic acid 400 mcg-omeg3 32.5 mg-dha-fish oil chew tablet ( with DHA and Folic Acid) 1 tab PO DAILY 02/04/19 [History Last Taken 02/26/21 21:00] Magnesium 500 mg PO DAILY Check with primary doctor 07/27/20 [History Last Taken 02/26/21 21:00] Vitamin D (with calcium) 2,000 mcg PO/SL DAILY Check with primary doctor 02/27/21 [History Last Taken 02/26/21 21:00] famotidine 20 mg tablet (Pepcid) 20 mg PO BID Check with primary doctor 02/27/21 [History Last Taken 02/27/21 08:00] acetaminophen 500 mg tablet 1,000 mg PO Q6H PRN PRN Pain 1-10 Or Fever #0 tabs 03/01/21 [Rx Last Taken Unknown] ibuprofen 600 mg tablet 600 mg PO Q6H PRN PRN Pain Score 1-3 #0 tabs 03/01/21 [Rx Last Taken Unknown] Allergy/AdvReac Type Severity Reaction Status Date / Time adhesive tape Allergy Rash Verified 07/06/22 17:38 escitalopram [From Lexapro] Allergy Unknown Verified 07/06/22 17:38 Latex, Natural Rubber Allergy Rash Verified 07/06/22 17:38 sulfamethoxazole Allergy Other Verified 07/06/22 17:38 [From Bactrim] trimethoprim [From Bactrim] Allergy Other Verified 07/06/22 17:38 Surgical History [place] teeth extracted Social History (Updated 07/06/22 @ 19:[address] Mark Hernandez, DO) Smoking Status: Never smoker substance use type: does not use ROS ROS ED Constitutional Constitutional ED: Denies chills or weight loss Eyes Eyes: Denies change in vision or diplopia ENT ENT ED: Denies ear pain, rhinorrhea or sore throat Cardiovascular Cardiovascular: Denies chest pain, orthopnea, palpitations or racing heartbeat Respiratory/Chest Respiratory/Chest: Denies cough, dyspnea or orthopnea Gastrointestinal Gastrointestinal: Reports nausea and vomiting; Denies abdominal pain, constipation or diarrhea Genitourinary Genitourinary ED: Denies dysuria, hematuria or urinary frequency Musculoskeletal Musculoskeletal: Denies arthralgias or myalgias Integumentary Denies abscess or rash Neurologic Neurologic: Denies headache(s) or weakness Psychiatric Psychiatric: Denies anxiety, depression, suicidal ideation or suicidal thoughts Endocrine Endocrinology: Denies polydipsia, polyphagia or polyuria Allergic/Immunologic Allergic/Immunologic ED: Denies mouth swelling, tongue swelling or urticaria EXAM Physical Exam Const Vital Signs: 07/06/22 17:38 Temperature 98.2 F Temperature Source Temporal Pulse Rate 124 H Respiratory Rate 18 Blood Pressure 93/64 Blood Pressure Mean 73 Pulse Ox 99 Oxygen Delivery Method Room Air Positive well nourished and well developed General Appearance ED: well developed HEENT Reports normocephalic, head/scalp atraumatic and moist mucous membranes Eyes PERRL and EOMs intact bilaterally Neck no lymphadenopathy, supple and no JVD Resp normal respiratory effort and clear to auscultation bilaterally Cardio regular rate and no murmurs Rate: tachycardic GI normal to inspection, nondistended, normoactive bowel sounds and non-tender Palpation: soft Back/Spine no CVA tenderness and normal ROM Extremity normal to inspection General Extremety ED: Negative for edema General Extremity: Negative for edema Neuro oriented x3 and CN's II-XII intact bilaterally Sensorium / Orientation: alert Motor Exam: strength 5/5 throughout Psych mental status grossly normal Mood & Affect: Negative for depressed or tearful Skin no rashes or lesions noted and no wounds MDM MDM MDM Narrative Medical decision making narrative: Patient received Zofran Reglan and 2 L of IV fluids. Basic blood work is negative. Urinalysis demonstrates a specific gravity of 1.02 and urinary ketones of 150. 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 Lab Data Labs: Laboratory Results - last 24 hr 07/06/22 07/06/22 07/06/22 18:32 18:32 19:44 WBC 9.0 RBC 4.15 L Hgb 12.3 Hct 36.8 L MCV 88.7 MCH 29.6 MCHC 33.4 RDW Std Deviation 44.2 H RDW Coeff of Esequiel 13.6 Plt Count 224 MPV 9.0 Immature Gran % (Auto) 0.600 Neut % (Auto) 82.3 H Lymph % (Auto) 10.6 L [place] % (Auto) 6.3 Eos % (Auto) 0.1 Baso % (Auto) 0.1 Absolute Neuts (auto) 7.4 Absolute Lymphs (auto) 0.95 Nucleated RBC % 0 Sodium 139 Potassium 3.7 Chloride 104 Carbon Dioxide 26.0 Anion Gap 9 BUN 11 Creatinine 0.56 Estim Creat Clear Calc 148.98 Est GFR (MDRD) Af Amer 171 Est GFR (MDRD) Non-Af 142 BUN/Creatinine Ratio 19.6 Glucose 87 Calcium 8.8 Total Bilirubin 0.60 AST 22 ALT 26 Alkaline Phosphatase 61 Total Protein 6.6 Albumin 3.1 L Globulin 3.5 Albumin/Globulin Ratio 0.9 Urine Color Yellow Urine Clarity Clear Urine pH 6.0 Ur Specific [place] 1.020 Urine Protein 15 H Urine Glucose (UA) Normal Urine Ketones 150 A* Urine Occult Blood 10 H Urine Nitrite Negative Urine Bilirubin Negative Urine Urobilinogen 1 H Ur Leukocyte Esterase 25 H Urine RBC 0 SEEN Urine WBC 0 SEEN Ur Squamous Epith Cells 0-5 SEEN Urine Bacteria RARE Urine Mucus RARE Discharge Plan Triage Chief Complaint: Abd Pain ED Provider: Mark Hernandez Dx/Rx/DC Orders Prescriptions: No Action with DHA-Folic Acid 1 EACH tablet,chewable 1 tab PO DAILY Magnesium 500 mg PO DAILY famotidine [Pepcid] 20 mg Tablet 20 mg PO BID Vitamin D (with calcium) 2,000 mcg PO/SL DAILY acetaminophen 500 mg Tablet 1,000 mg PO Q6H PRN PRN (Reason: Pain 1-10 Or Fever) Qty: 0 0RF ibuprofen 600 mg Tablet 600 mg PO Q6H PRN PRN (Reason: Pain Score 1-3) Qty: 0 0RF Primary Care Provider: Peter Mcdermott Referrals: Peter Mcdermott DO [Primary Care Provider] -
[2022-07-06 19:48] LABS: Red Blood Cells-Urine 0 SEEN /hpf (0-5); White Blood Cells 0 SEEN /hpf (0-5)
[2022-07-06 19:49] LABS: Color, Urine Yellow (Yellow); Glucose, Dipstick Normal (Normal); Leukocyte Esterase-Dipstick 25 /ul (Negative); Nitrite-Dipstick Negative (Negative); Occult Blood-Urine 10 /ul (Negative); Protein-Dipstick 15 mg/dl (Negative); Urine Bilirubin Dipstick Negative (Negative); Urine Clarity Clear (Clear); Urine Urobilinogen 1 mg/dl (Normal)
[2022-07-06 19:51] LABS: Ketone-Dipstick 150 mg/dl (Negative)
[2022-07-06 19:59] LABS: Bacteria RARE /hpf (None Seen); Mucous, Urine RARE /hpf (<or=2+); Squamous Epithelial Cells - UA 0-5 SEEN /hpf (5-10)
[2022-07-06] MEDS: Metoclopramide 10 MG/2 ML Vial IV (21:02)
[2022-07-06] MEDS: 0.9% Normal Saline 1,000 ML 999 ML IV (21:10)
== END 2022-07-06 22:39 | disposition home or self-care (01) ==
PROVIDERS: Emergency Provider Emergency Medicine; PCP Pediatrics; Visit Provider Emergency Medicine
DX: O99.891 Other specified diseases and conditions complicating pregnancy (principal); R10.9 Unspecified abdominal pain; O21.0 Mild hyperemesis gravidarum; Z3A.15 15 weeks gestation of pregnancy
CPT/HCPCS: 80053; 81001; 85025; 96361; 96374; 96375; 99283; J7030; A4216; J2405

== ENCOUNTER 2022-08-13 23:51 | Outpatient (CLI) | payer MEDICAID, SELFPAY ==
[2022-08-14] VITALS (12 sets, daily range): BP systolic 73–103; BP diastolic 41–60; PULSE 85–112; TEMP 36.6–36.9; O2SAT 97–98; BMI 21.2
[2022-08-14 01:16] LABS: Color, Urine Yellow (Yellow); Glucose, Dipstick Normal (Normal); Ketone-Dipstick 15 mg/dl (Negative); Leukocyte Esterase-Dipstick 25 /ul (Negative); Nitrite-Dipstick Negative (Negative); Occult Blood-Urine 10 /ul (Negative); Protein-Dipstick 30 mg/dl (Negative); Urine Bilirubin Dipstick Negative (Negative); Urine Clarity Clear (Clear); Urine Urobilinogen 1 mg/dl (Normal)
[2022-08-14] MEDS: Lactated Ringers 1,000 ML 999 ML IV (01:20)
[2022-08-14 01:30] LABS: Absolute Lymphocyte Count 2.06 X10^3/uL (0.83-4.51); Absolute Neutrophil Count 25.6 X10^3/uL (2.0-7.7); Basophil# 0.06 X10^3/uL; Basophil% 0.2 % (0-1); Eosinophil# 0.03 X10^3/uL; Eosinophils% 0.1 % (0-5); Hematocrit 37.9 % (37-47); Hemoglobin 12.9 g/dL (12.0-15.0); Lymphocyte # 2.06 X10^3/ul (0.83-4.51); Lymphocyte % 7.1 % (19-41); Mean Corpuscular Hgb 30.4 pg (27.0-32.0); Mean Corpuscular Volume 89.2 fL (81-99); Mean Platelet Vol. 9.2 fl (6.2-12.0); Monocyte# 1.02 X10^3/uL; Monocyte% 3.5 % (0-10); NRBC Flagged by Analyzer 0 % (0-5); Neutrophil # 25.56 X10^3/uL (2.7-7.7); Neutrophil % 88.1 % (47-70); POSITIVE DIFFERENTIAL YES; Platelet Count 275 K/mm3 (150-450); RBC Distribution Width CV 13.6 % (11.6-14.6); RBC Distribution Width SD 44.4 fl (35.1-43.9); Red Blood Count 4.25 M/mm3 (4.2-5.4)
[2022-08-14 01:32] LABS: Differential Indicated SCAN CRITERIA MET
[2022-08-14 01:44] LABS: ALB/GLOB Ratio 0.9 RATIO (0.9-2.4); AST(SGOT) 11 U/L (15-37); Alanine Aminotransfer ALT/SGPT 22 U/L (13-56); Albumin, Serum 3.2 g/dL (3.2-5.0); Alkaline Phosphatase 62 U/L (45-117); Amylase 64 U/L (25-115); Anion Gap 8 (5-15); BUN 13 mg/dL (7-18); BUN/Creat Ratio 21.9 RATIO (10-20); Calcium,Total 8.6 mg/dL (8.5-10.1); Chloride 109 mmol/L (98-107); Creatinine, Serum 0.59 mg/dL (0.55-1.02); EST Glomerular Filtration Rate 132 mL/min (>60); Est Glom Filt Rate - Afr Amer 160 mL/min (>60); Estimated Creatinine Clearance 151.19 ml/min; Globulin 3.4 g/dL (2.2-4.2); Glucose 92 mg/dL (74-106); Lipase 144 U/L (73-393); Potassium 3.6 mmol/L (3.5-5.1); Protein, Total 6.6 g/dL (6.4-8.2); Sodium Level 139 mmol/L (136-145)
[2022-08-14] MEDS: Metoclopramide 10 MG/2 ML Vial 5 MG IV (02:32)
[2022-08-14] MEDS: 0.9% Saline Lock 10 ML Syringe IV (02:33)
--- NOTE | 2022-08-14 08:00 | US_ITS ---
Examination: Abdominal ultrasound. INDICATION: Abdominal pain. TECHNIQUE: A dedicated right upper quadrant ultrasound was obtained including Doppler images. COMPARISON: None FINDINGS: The liver is within normal limits. There is no gallbladder wall thickening nor pericholecystic fluid. There is a 4.6 x 2.2 mm echogenic nonshadowing and nonmobile focus within the gallbladder neck. There is no reported positive sonographic Hurd''s sign. The common bile duct measures 2.5 mm. The pancreas is within normal limits. The right kidney measures 10.6 cm in length. There is no hydronephrosis. US/Abdomen Limited IMPRESSION: Indeterminate 4.6 x 2.2 mm echogenic focus within the gallbladder may reflect an adherent gallstone or a polyp. Electronically Signed: Carmita Robles MD at 11:51 EST ,
--- NOTE | 2022-08-14 12:56 | OB.TRI.NOTE ---
HPI - General General Date of Admission: 08/13/22 Date of Service: 08/14/22 Chief Complaint: abdominal pain HPI Narrative DEDE DUNN, is a 22-year-old 3 para 2 at 21-1/7 weeks gestation with a EDC of 12/24/2022 complains of abdominal pain. She arrived to labor and delivery last night. Patient states she had dinner which was some broccoli cheese soup. Shortly after she got nauseous and when she went to take a Zofran that she has for her nausea and vomiting of , she immediately vomited. She then vomited for about an hour. She denies any fevers or chills. She denies any diarrhea or constipation. She is felt crampy almost like contractions. She denies any vaginal bleeding or leaking of fluid. She has not had pain like this before. She denies any dysuria or hematuria. Maternal Data Information Final ZURI: 12/24/22 Gestational age: 21 1/7 [facility] Medical History Anxiety Asthma Depression Fibromyalgia Migraine Home Medications 103-folic acid 400 mcg-omeg3 32.5 mg-dha-fish oil chew tablet ( with DHA and Folic Acid) 1 tab PO DAILY 02/04/19 [History Last Taken 02/26/21 21:00] doxylamine 10 mg-pyridoxine (vit B6) 10 mg tablet,delayed release (Diclegis) 2 tab PO DAILY 08/14/22 [History Last Taken Unknown] metoclopramide HCl 5 mg tablet (Reglan) 5 mg PO Q6H PRN PRN Nausea 08/14/22 [History Last Taken 08/13/22 23:15 5 mg] ondansetron HCl 4 mg tablet 4 mg PO Q8H PRN Nausea 08/14/22 [History Last Taken 08/13/22 22:15] Allergy/AdvReac Type Severity Reaction Status Date / Time adhesive tape Allergy Rash Verified 08/14/22 01:26 escitalopram [From Lexapro] Allergy Unknown Verified 08/14/22 01:26 Latex, Natural Rubber Allergy Rash Verified 08/14/22 01:26 sulfamethoxazole Allergy Other Verified 08/14/22 01:26 [From Bactrim] trimethoprim [From Bactrim] Allergy Other Verified 08/14/22 01:26 Surgical History [place] teeth extracted Social History (Updated 07/06/22 @ 19:[address] Mark Hernandez, DO) Smoking Status: Never smoker substance use type: does not use History Elective abortions Hx Para 1 Spontaneous abortions Hx # Term Pregnancies Ectopic pregnancies Hx # Pregnancies Multiple births # of living children Physical Exam Narrative Awake, alert, no acute distress Abdomen soft, nondistended, gravid. No fundal tenderness. No rebound or guarding. Mild diffuse tenderness. Negative Hurd sign. Low second high and firm. No blood on exam heart tones are positive on Doppler. Tocometer does not show any contractions Assessment & Plan (1) 21 weeks gestation of : PLAN: Abdominal pain with nausea vomiting in . Pain is improved. No evidence of labor. No evidence of appendicitis. May be her gallbladder but she is afebrile and hungry this morning. She tolerated some clear liquids and would like solid food. She is afebrile. Abdominal ultrasound reviewed. Possible gallbladder polyp or stone otherwise unremarkable. Discussed with the patient uncertain what the exact etiology of her pain is whether it was related to something she ate, or possibly gallbladder related. At this point I recommend the patient push fluids, eat a light, low-fat nonspicy diet for few days and call or return if any changes in symptoms. Patient is comfortable with this plan. (2) Abdominal pain during in second trimester:
== END 2022-08-14 11:30 | disposition home or self-care (01) ==
LOC: WPOUT 23:53 → WP 23:53
PROVIDERS: PCP Pediatrics; Visit Provider Advanced Practice Midwife
DX: O26.892 Other specified pregnancy related conditions, second trimester (principal); O21.9 Vomiting of pregnancy, unspecified; Z3A.20 20 weeks gestation of pregnancy; M79.7 Fibromyalgia
CPT/HCPCS: 96374; 96361; 36415; 59025; 59050; 76705; 80053; 81002; 82150; 83690; 85025; 87086; 87088; 99218; J7120; A4216; G0378

== ENCOUNTER 2022-12-24 17:50 | Outpatient (CLI) | payer MEDICAID, SELFPAY ==
[2022-12-24 18:19] VITALS: BMI 25.5
[2022-12-24 18:38] VITALS: TEMP 36.8; O2SAT 97
[2022-12-24 18:39] VITALS: BP 114/73; PULSE 116
[2022-12-24 19:07] LABS: ROM Internal Control Test YES-OK TO RESULT pt. (Internal QC); ROM Patient Test Negative (Negative)
--- NOTE | 2022-12-24 20:11 | OB.TRI.HP_ITS ---
HPI - General General Date of Service: 12/24/22 HPI Narrative DEDE DUNN, is a 22 F @ 40 weeks who presents c/o SROM PFSH PFSH Medical History Anxiety Asthma Depression Fibromyalgia Migraine Home Medications 103-folic acid 400 mcg-omeg3 32.5 mg-dha-fish oil chew tablet ( with DHA and Folic Acid) 1 tab PO DAILY 02/04/19 [History Last Taken 02/26/21 21:00] doxylamine 10 mg-pyridoxine (vit B6) 10 mg tablet,delayed release (Diclegis) 2 tab PO DAILY 08/14/22 [History Last Taken Unknown] metoclopramide HCl 5 mg tablet (Reglan) 5 mg PO Q6H PRN PRN Nausea 08/14/22 [History Last Taken 08/13/22 23:15 5 mg] ondansetron HCl 4 mg tablet 4 mg PO Q8H PRN Nausea 08/14/22 [History Last Taken 08/13/22 22:15] ascorbic acid (vitamin C) 2,000 mg tablet,extended release 2,000 mg PO DAILY 12/24/22 [History Last Taken Unknown] cholecalciferol (vitamin D3) 50 mcg (2,000 unit) capsule (Vitamin D3) 2,000 unit PO DAILY 12/24/22 [History Last Taken Unknown] famotidine 40 mg tablet (Pepcid) 40 mg PO DAILY heartburn 12/24/22 [History Last Taken Unknown] ferrous sulfate 325 mg (65 mg iron) tablet (iron) 325 mg PO DAILY anemia 12/24/22 [History Last Taken Unknown] promethazine 12.5 mg tablet 12.5 mg PO DAILY nausea 12/24/22 [History Last Taken Unknown] Allergy/AdvReac Type Severity Reaction Status Date / Time adhesive tape Allergy Rash Verified 12/24/22 18:21 escitalopram [From Lexapro] Allergy Unknown Verified 12/24/22 18:21 Latex, Natural Rubber Allergy Rash Verified 12/24/22 18:21 sulfamethoxazole Allergy Other Verified 12/24/22 18:21 [From Bactrim] trimethoprim [From Bactrim] Allergy Other Verified 12/24/22 18:21 Surgical History [place] teeth extracted Social History (Updated 07/06/22 @ 19:[address] Mark Hernandez DO) Smoking Status: Never smoker substance use type: does not use History Elective abortions Hx Para 1 Spontaneous abortions Hx # Term Pregnancies Ectopic pregnancies Hx # Pregnancies Multiple births # of living children NST FHR Rate Baby A Baseline: 140 Variability:: Moderate Accelerations:: 15 x 15 Decelerations:: None NST Reactive:: Yes FHR Category:: Category I Uterine Activity:: irregular Assessment & Plan (1) 40 weeks gestation of : (2) False labor after 37 completed weeks of gestation: PLAN: Plan @ 40 weeks 1) membranes intact- NST reactive cat 1 2) dc home
== END 2022-12-24 19:45 | disposition home or self-care (01) ==
LOC: WPOUT 17:59 → WP 18:00
PROVIDERS: PCP Pediatrics; Visit Provider Obstetrics & Gynecology
DX: O47.03 False labor before 37 completed weeks of gestation, third trimester (principal); O99.343 Other mental disorders complicating pregnancy, third trimester; F32.A Depression, unspecified; F41.9 Anxiety disorder, unspecified; Z79.899 Other long term (current) drug therapy; Z3A.40 40 weeks gestation of pregnancy
CPT/HCPCS: 59025; 59050; 84112

== ENCOUNTER 2022-12-31 03:07 | Inpatient (IN) | payer MEDICAID, SELFPAY ==
[2022-12-31] VITALS (24 sets, daily range): BP systolic 100–128; BP diastolic 58–88; PULSE 81–121; RESP 16; TEMP 36.4–37.1; O2SAT 97–99; BMI 21.9
[2022-12-31] MEDS: Oxytocin 10 UNITS/ML Vial IM (03:14)
[2022-12-31 03:31] LABS: ROM Internal Control Test YES-OK TO RESULT pt. (Internal QC)
[2022-12-31 03:33] LABS: ROM Patient Test POSITIVE (Negative)
[2022-12-31 03:46] LABS: Absolute Neutrophil Count 10.4 X10^3/uL (2.0-7.7); Basophil# 0.03 X10^3/uL; Basophil% 0.2 % (0-1); Eosinophil# 0.08 X10^3/uL; Eosinophils% 0.6 % (0-5); Hematocrit 39.9 % (37-47); Hemoglobin 13.2 g/dL (12.0-15.0); Mean Corp Hgb Conc 33.1 g/dL (32-36); Mean Corpuscular Hgb 29.7 pg (27.0-32.0); Mean Corpuscular Volume 89.9 fL (81-99); Mean Platelet Vol. 10.1 fl (6.2-12.0); Monocyte# 0.65 X10^3/uL; Monocyte% 4.8 % (0-10); NRBC Flagged by Analyzer 0 % (0-5); Neutrophil # 10.42 X10^3/uL (2.7-7.7); Neutrophil % 76.9 % (47-70); Platelet Count 207 K/mm3 (150-450); RBC Distribution Width CV 18.9 % (11.6-14.6); RBC Distribution Width SD 61.7 fl (35.1-43.9); Red Blood Count 4.44 M/mm3 (4.2-5.4); White Blood Count 13.6 K/mm3 (4.4-11.0)
[2022-12-31] MEDS: Oxytocin 15 Units/NS 250ml 15 UNITS/250 ML IV.SOLN 83 UNITS IV (04:20)
--- NOTE | 2022-12-31 04:29 | HP.PCM.OB_ITS ---
HPI - General General Date of Admission: 12/31/22 HPI Narrative DEDE DUNN, is a 22 F at 41 weeks who presents with SROM at home. Contractions every 2-3 minutes upon arrival. Maternal Data Information ZURI Calculator Estimated Delivery Date Method Current WG Current Estimate 12/24/22 Manual 41w 0d PFSH PFSH Medical History Anxiety Asthma Depression Fibromyalgia Migraine Home Medications 103-folic acid 400 mcg-omeg3 32.5 mg-dha-fish oil chew tablet ( with DHA and Folic Acid) 1 tab PO DAILY 02/04/19 [History Last Taken 02/26/21 21:00] doxylamine 10 mg-pyridoxine (vit B6) 10 mg tablet,delayed release (Diclegis) 2 tab PO DAILY 08/14/22 [History Last Taken Unknown] metoclopramide HCl 5 mg tablet (Reglan) 5 mg PO Q6H PRN PRN Nausea 08/14/22 [History Last Taken 08/13/22 23:15 5 mg] ondansetron HCl 4 mg tablet 4 mg PO Q8H PRN Nausea 08/14/22 [History Last Taken 08/13/22 22:15] ascorbic acid (vitamin C) 2,000 mg tablet,extended release 2,000 mg PO DAILY 12/24/22 [History Last Taken Unknown] cholecalciferol (vitamin D3) 50 mcg (2,000 unit) capsule (Vitamin D3) 2,000 unit PO DAILY 12/24/22 [History Last Taken Unknown] famotidine 40 mg tablet (Pepcid) 40 mg PO DAILY heartburn 12/24/22 [History Last Taken Unknown] ferrous sulfate 325 mg (65 mg iron) tablet (iron) 325 mg PO DAILY anemia 12/24/22 [History Last Taken Unknown] promethazine 12.5 mg tablet 12.5 mg PO DAILY nausea 12/24/22 [History Last Taken Unknown] Allergy/AdvReac Type Severity Reaction Status Date / Time adhesive tape Allergy Rash Verified 12/24/22 18:21 escitalopram [From Lexapro] Allergy Unknown Verified 12/24/22 18:21 Latex, Natural Rubber Allergy Rash Verified 12/24/22 18:21 lettuce Allergy Food Verified 12/31/22 02:58 Allergy milk Allergy Upset Verified 12/31/22 02:57 Stomach sulfamethoxazole Allergy Other Verified 12/24/22 18:21 [From Bactrim] trimethoprim [From Bactrim] Allergy Other Verified 12/24/22 18:21 Surgical History [place] teeth extracted Social History (Updated 07/06/22 @ 19:[address] Mark Hernandez, DO) Smoking Status: Never smoker substance use type: does not use History Elective abortions Hx Para 1 Spontaneous abortions Hx # Term Pregnancies Ectopic pregnancies Hx # Pregnancies Multiple births # of living children Visit Details OB Flowsheet Initial Weight: Not Recorded Date -?-?-?-?-?-?-?-?-?-?-?-?- EGA Weight BP Urine Prot -?-?-?-?-?-?-?-?-?-?-?-?- Glucose FHR FuHt Pres Dilation -?-?-?-?-?-?-?-?-?-?-?-?- Effaced St Visit Note 12/31/22 -?-?-?-?-?-?-?-?-?-?-?-?- 41w 0d 148 lb 6 oz 128/88 -?-?-?-?-?-?-?-?-?-?-?-?- -?-?-?-?-?-?-?-?-?-?-?-?- NST FHR Rate Baby A Baseline: 145 Variability:: Moderate Accelerations:: 15 x 15 Decelerations:: None NST Reactive:: Yes FHR Category:: Category I Uterine Activity:: every 2-3 minutes ROS Constitutional Constitutional: Reports systems reviewed and no addt'l complaints, except as documented; Denies headache(s) Eyes Eyes: Denies acute decrease in peripheral vision, blurry vision or change in vision ENT HEENT: Reports systems reviewed and no addt'l complaints, except as documented Cardiovascular Cardiovascular: Denies chest pain or dizziness Respiratory/Chest Respiratory/Chest: Denies cough, dyspnea, dyspnea on exertion, shortness of breath at rest or shortness of breath with exertion Gastrointestinal Gastrointestinal: Denies abdominal pain, diarrhea, nausea or vomiting Genitourinary Genitourinary: Denies abdominal discomfort or movement Musculoskeletal Musculoskeletal: Denies limited range of motion Integumentary Integumentary: Reports systems reviewed and no addt'l complaints, except as documented Neurologic Neurologic: Reports systems reviewed and no addt'l complaints, except as documented Psychiatric Psychiatric: Reports systems reviewed and no addt'l complaints, except as documented Endocrine Endocrinology: Reports systems reviewed and no addt'l complaints, except as documented Hematologic/Lymphatic Hematologic/Lymphatic: Reports systems reviewed and no addt'l complaints, except as documented Allergic/Immunologic Allergic/Immunologic: Reports systems reviewed and no addt'l complaints, except as documented Vital Signs Vital Signs Vital Signs: 12/31/22 03:11 12/31/22 03:11 12/31/22 03:14 Temperature Temperature Source Pulse Rate 116 H 121 H Blood Pressure 128/88 H BP Systolic 128 BP Diastolic 88 Pulse Ox 12/31/22 03:14 12/31/22 03:06 12/31/22 03:06 Temperature 98.1 F Temperature Source Temporal Pulse Rate Blood Pressure BP Systolic BP Diastolic Pulse Ox 99 Weight Weight: 148 lb 6 oz Body Mass Index (BMI) 21.9 Physical Exam Const alert and oriented x3 General Appearance: cooperative Orientation / Consciousness: awake, oriented to person, oriented to place and oriented to time Exam Limitations: no limitations HEENT normocephalic Head and Scalp: normal to inspection, normocephalic and atraumatic Face and Sinus: normal facial exam Eyes General Eye: normal appearance of both eyes Neck full ROM Chest Chest: symmetrical chest wall rise Resp normal respiratory effort and normal air movement Auscultation: clear to auscultation bilaterally Cardio regular rate, regular rhythm, S1 normal heart sound, S2 normal heart sound, no murmurs, no rub, no gallops and no clicks GI normal to inspection, nondistended, normoactive bowel sounds and non-tender appearance of the vagina normal Bladder / Kidney Exam: no CVA tenderness Back/Spine normal ROM Extremity normal to inspection and full ROM Skin no rashes or lesions noted Neuro oriented x3, CN's II-XII intact bilaterally and moves all extremities Sensorium / Orientation: awake, alert and oriented to person Motor Exam: clonus absent Deep Tendon Reflexes: Rt Patellar (L4): 2+ and Lt Patellar (L4): 2+ Labs Labs Labs: Blood Type O NEGATIVE Antibody Screen NEGATIVE Hct 39.9 % (37-47) Hgb 13.2 g/dL (12.0-15.0) Syphilis Total Ab Pending Rhogam given: Yes HepC negative HBsAG negative HIV negative RPR negative GBS negative Rubella Immune Assessment & Plan (1) SROM (spontaneous rupture of membranes): (2) Active labor: (3) History of depression: (4) Generalized anxiety disorder: (5) Rh negative state in antepartum period: (6) Chronic headache: (7) Anemia affecting : (8) Single umbilical artery: (9) 41 weeks gestation of : (10) Post-dates : (11) History of drug abuse: COMMENT: PCP and marijuana. No use since 2016 PLAN: Plan 1) Admit to labor and delivery 2) Routine labs 3) Pain management upon request 4) ROM plus positive 5) notified of delivery
--- NOTE | 2022-12-31 04:34 | EX.PCM.OBRPT ---
Vaginal Delivery Maternal Presentation Maternal Presentation: Active Labor and Spontaneous Rupture of Membranes Operative Information Date of Procedure: 12/31/22 Pre-Operative Diagnosis: SROM, active labor Post-Operative Diagnosis: Surgery / Procedure Performed: Spontaneous Vaginal Delivery Type of Anesthesia: None Estimated Blood Loss: 100ml Time of Delivery: 04:13 Findings Description of Procedure: Progressed to complete with urge to push, unmedicated. of viable female infant over intact perineum. APGARS 8,8 respectively. Infant head delivered with body immediately forthcoming. Placed on maternal abdomen, strong cry. Mouth and nares suctioned for secretions. Pitocin started for active 3rd stage management. Cord doubly clamped and cut by FOB after pulsations ceased, delayed cord clamping. Placenta delivered intact via lashae, 2 vessel cord intact. Perineum inspected and revealed intact. Fundus firm and hemostasis achieved. EBL 100ml. Mom and baby stable, planning to breastfeed. Family bonding well. notified of delivery. Presentation: Vertex and SONI Amniotic Membrane Rupture Type: Spontaneous Amniotic Fluid Description: Clear Placental Delivery Description: Spontaneous Placenta Disposition: [facility] Cord Vessel Description: 2 Vessels Cord Entanglement: Around neck x 1, loose Nuchal Cord Compression: Without compression Infant A Gender: Female (1 minute): 8 (5 minute): 8 Delayed Cord Clamping: Yes Post Vaginal Delivery Medications Given After Delivery: IV Pitocin and IM Pitocin Episiotomy Description: None Laceration: None Complication Complications: None
[2022-12-31 05:57] LABS: Syphilis Antibodies Non-reactive
[2022-12-31] MEDS: Prenatal Vits Tablet 1 TABLET PO (11:54)
[2022-12-31 13:07] LABS: Amphetamine Urine VISTA NEGATIVE (<1000 ng/mL); Barbiturate Urine VISTA NEGATIVE (< 200 ng/mL); Benzodiazepine Urine VISTA NEGATIVE (< 200 ng/mL); Cocaine Urine VISTA NEGATIVE (< 300 ng/mL); Ecstacy Urine VISTA NEGATIVE (< 500 ng/mL); Methadone Urine VISTA NEGATIVE (< 300 ng/mL); PCP Urine VISTA NEGATIVE (< 25 ng/mL); THC Urine VISTA NEGATIVE (< 50 ng/mL); Vista UDS pH Range 7
[2022-12-31] MEDS: Ibuprofen 600 MG Tablet PO ×2 (14:11→22:38)
[2023-01-01 00:10] VITALS: BP 121/67; PULSE 66; PULSE 99; RESP 14; TEMP 36.8
[2023-01-01] MEDS: Acetaminophen 500 MG Tablet 1000 MG PO ×2 (02:13→10:24)
[2023-01-01 04:17] VITALS: BP 101/58; PULSE 76; RESP 16; TEMP 36.7
[2023-01-01] MEDS: Ibuprofen 600 MG Tablet PO (04:47)
[2023-01-01 05:03] LABS: Hematocrit 35.6 % (37-47); Hemoglobin 11.6 g/dL (12.0-15.0); Mean Corp Hgb Conc 32.6 g/dL (32-36); Mean Corpuscular Hgb 29.4 pg (27.0-32.0); Mean Corpuscular Volume 90.1 fL (81-99); Mean Platelet Vol. 9.2 fl (6.2-12.0); Platelet Count 186 K/mm3 (150-450); RBC Distribution Width SD 62.5 fl (35.1-43.9); Red Blood Count 3.95 M/mm3 (4.2-5.4); White Blood Count 13.4 K/mm3 (4.4-11.0)
--- NOTE | 2023-01-01 08:21 | PCM.PN.OB ---
Subjective Subjective Doing well per patient and nursing staff. Ambulating and taking PO without difficulty. Voiding and passing flatus. Pain controlled. , services for assistance. Denies headache, visual changes, chest pain, shortness of breath, leg pain or increased bleeding. Lochia normal. Objective Data Objective Data Vital Signs: Vital Signs Temp Pulse Resp BP Pulse Ox O2 Del Method 98.1 F 76 16 101/58 L 97 Room Air 01/01/23 04:17 01/01/23 04:17 01/01/23 04:17 01/01/23 04:17 12/31/22 06:21 01/01/23 04:17 Oxygen Delivery Method Room Air Weight: 148 lb 6 oz Body Mass Index (BMI) 21.9 Intake & Output: Intake and Output for Last 24 Hours 12/30/22 12/31/22 01/01/23 23:59 23:59 23:59 Intake Total 232.4 / 232.4 Output Total 700 / 700 Balance -467.6 / -467.6 Lab / Micro Data Result Diagrams: 01/01/23 04:54 Labs: Laboratory Results - last 24 hr 12/31/22 10:15: Screen NEGATIVE, Baby's Blood Type O POSITIVE, Baby's SONJA NEGATIVE 12/31/22 12:15: Urine Opiates Screen NEGATIVE, Urine Methadone Screen NEGATIVE, Ur Barbiturates Screen NEGATIVE, Ur Phencyclidine Scrn NEGATIVE, Ur Amphetamines Screen NEGATIVE, MDMA (Ecstasy) Screen NEGATIVE, U Benzodiazepines Scrn NEGATIVE, Urine Cocaine Screen NEGATIVE, U Cannabinoids Screen NEGATIVE, Ur Drug Screen Comment 01/01/23 04:54: WBC 13.4 H, RBC 3.95 L, Hgb 11.6 L, Hct 35.6 L, MCV 90.1, MCH 29.4, MCHC 32.6, RDW Std Deviation 62.5 H, RDW Coeff of Esequiel 19.0 H, Plt Count 186, MPV 9.2 ROS Constitutional Constitutional: Reports systems reviewed and no addt'l complaints, except as documented; Denies headache(s) Eyes Eyes: Denies acute decrease in peripheral vision, blurry vision or change in vision ENT HEENT: Reports systems reviewed and no addt'l complaints, except as documented Cardiovascular Cardiovascular: Denies chest pain or dizziness Respiratory/Chest Respiratory/Chest: Denies cough, dyspnea, dyspnea on exertion, shortness of breath at rest or shortness of breath with exertion Gastrointestinal Gastrointestinal: Denies abdominal pain, diarrhea, nausea or vomiting Genitourinary Genitourinary: Denies abdominal discomfort Musculoskeletal Musculoskeletal: Denies limited range of motion Integumentary Integumentary: Reports systems reviewed and no addt'l complaints, except as documented Neurologic Neurologic: Reports systems reviewed and no addt'l complaints, except as documented Psychiatric Psychiatric: Reports systems reviewed and no addt'l complaints, except as documented Endocrine Endocrinology: Reports systems reviewed and no addt'l complaints, except as documented Hematologic/Lymphatic Hematologic/Lymphatic: Reports systems reviewed and no addt'l complaints, except as documented Allergic/Immunologic Allergic/Immunologic: Reports systems reviewed and no addt'l complaints, except as documented Physical Exam Const alert and oriented x3 General Appearance: cooperative Orientation / Consciousness: awake, oriented to person, oriented to place and oriented to time Exam Limitations: no limitations HEENT normocephalic Head and Scalp: normal to inspection, normocephalic and atraumatic Face and Sinus: normal facial exam Eyes General Eye: normal appearance of both eyes Neck full ROM Chest Chest: symmetrical chest wall rise Resp normal respiratory effort and normal air movement Auscultation: clear to auscultation bilaterally Cardio regular rate, regular rhythm, S1 normal heart sound, S2 normal heart sound, no murmurs, no rub, no gallops and no clicks GI normal to inspection, nondistended, normoactive bowel sounds and non-tender appearance of the vagina normal Bladder / Kidney Exam: no CVA tenderness Back/Spine normal ROM Extremity normal to inspection and full ROM Skin no rashes or lesions noted Neuro oriented x3, CN's II-XII intact bilaterally and moves all extremities Sensorium / Orientation: awake, alert and oriented to person Motor Exam: clonus absent Deep Tendon Reflexes: Rt Patellar (L4): 2+ and Lt Patellar (L4): 2+ Assessment & Plan (1) Vaginal delivery: (2) Lactating mother: PLAN: Plan 1) PPD#1 2) Vitals stable 3) Pain controlled 4) D/C home 5) Follow up in 2 weeks and 6 weeks PP
--- NOTE | 2023-01-01 08:28 | PCM.DC.SUM ---
Providers Date of Admission: 12/31/22 Primary Care Physician: Dr. Peter Mcdermott DO Reason For Visit: VAG Diagnosis Discharge Diagnosis (1) Vaginal delivery: Status: Acute Code(s): O80 - Encounter for full-term uncomplicated delivery (2) Lactating mother: Status: Acute Code(s): Z39.1 - Encounter for care and examination of lactating mother Plan 1) PPD#1 2) Vitals stable 3) Pain controlled 4) D/C home 5) Follow up in 2 weeks and 6 weeks PP Medications at Discharge Home Medications 103-folic acid 400 mcg-omeg3 32.5 mg-dha-fish oil chew tablet ( with DHA and Folic Acid) 1 tab PO DAILY 02/04/19 cholecalciferol (vitamin D3) 50 mcg (2,000 unit) capsule (Vitamin D3) 2,000 unit PO DAILY 12/24/22 acetaminophen 500 mg tablet 1,000 mg PO Q6H PRN PRN Pain 1-10 Or Fever #0 tabs 01/01/23 ibuprofen 600 mg tablet 600 mg PO Q6H PRN PRN Pain Score 1-10 #0 tabs 01/01/23 Weight / BMI Weight Weight: 148 lb 6 oz Body Mass Index (BMI) 21.9 ABG / Lab / Microbiology Data Result Diagrams: 01/01/23 04:54 Laboratory: Laboratory Results - last 24 hr 12/31/22 10:15: Screen NEGATIVE, Baby's Blood Type O POSITIVE, Baby's SONJA NEGATIVE 12/31/22 12:15: Urine Opiates Screen NEGATIVE, Urine Methadone Screen NEGATIVE, Ur Barbiturates Screen NEGATIVE, Ur Phencyclidine Scrn NEGATIVE, Ur Amphetamines Screen NEGATIVE, MDMA (Ecstasy) Screen NEGATIVE, U Benzodiazepines Scrn NEGATIVE, Urine Cocaine Screen NEGATIVE, U Cannabinoids Screen NEGATIVE, Ur Drug Screen Comment 01/01/23 04:54: WBC 13.4 H, RBC 3.95 L, Hgb 11.6 L, Hct 35.6 L, MCV 90.1, MCH 29.4, MCHC 32.6, RDW Std Deviation 62.5 H, RDW Coeff of Esequiel 19.0 H, Plt Count 186, MPV 9.2 Meaningful Use Info Meaningful Use Diagnoses (Choose all that apply): None applicable Discharge Plan Admission Admit Date/Time: 12/31/22 03:07 Primary Reason for Your Visit: Vaginal Delivery Attending Provider: Pat Garsia Primary Care Provider: Peter Mcdermott Discharge Orders/Prescriptions Prescriptions: New ibuprofen 600 mg Tablet 600 mg PO Q6H PRN PRN (Reason: Pain Score 1-10) Qty: 0 0RF acetaminophen 500 mg Tablet 1,000 mg PO Q6H PRN PRN (Reason: Pain 1-10 Or Fever) Qty: 0 0RF Continued with DHA-Folic Acid 1 EACH tablet,chewable 1 tab PO DAILY cholecalciferol (vitamin D3) [Vitamin D3] 50 mcg (2,000 unit) capsule 2,000 unit PO DAILY Label Comments: Take 1 capsule by mouth once daily. Discontinued ondansetron HCl [Zofran] 4 mg Tablet 4 mg PO Q8H PRN (Reason: Nausea) metoclopramide HCl [Reglan] 5 mg Tablet 5 mg PO Q6H PRN PRN (Reason: Nausea) doxylamine-pyridoxine (vit B6) [Diclegis] 10-10 mg Tablet,Delayed Release (Dr/Ec) 2 tab PO DAILY Vitamin C 2,000 mg Tablet Extended Release 2,000 mg PO DAILY promethazine 12.5 mg tablet 12.5 mg PO DAILY Label Comments: TAKE 1 TABLET BY MOUTH EVERY 6 HOURS NEEDED famotidine [Pepcid] 40 mg Tablet 40 mg PO DAILY ferrous sulfate [iron] 325 mg (65 mg iron) Tablet 325 mg PO DAILY Referrals / Follow Up: Peter Mcdermott DO [Primary Care Provider] - Disposition Disposition (needs filled in before D/C Order can be placed): Home, Self Care
[2023-01-01 08:57] VITALS: BP 103/77; PULSE 109
[2023-01-01 08:58] VITALS: BP 103/77; RESP 16; TEMP 36.2
[2023-01-01] MEDS: Prenatal Vits Tablet 1 TABLET PO (10:24)
[2023-01-01 12:57] VITALS: BP 104/64; PULSE 86; RESP 16; TEMP 36.2
== END 2023-01-01 14:33 | disposition home or self-care (01) | DRG 560 ==
LOC: WPOUT 03:11 → WP 03:11
PROVIDERS: Admitting Provider Advanced Practice Midwife; PCP Pediatrics; Referring Provider Advanced Practice Midwife; Visit Provider Advanced Practice Midwife
DX: O48.0 Post-term pregnancy (principal); Z37.0 Single live birth; O26.893 Other specified pregnancy related conditions, third trimester; Z67.41 Type O blood, Rh negative; O42.92 Full-term premature rupture of membranes, unspecified as to length of time between rupture and onset of labor; O69.2XX0 Labor and delivery complicated by other cord entanglement, with compression, not applicable or unspecified; O69.81X0 Labor and delivery complicated by cord around neck, without compression, not applicable or unspecified; O99.02 Anemia complicating childbirth; O69.89X0 Labor and delivery complicated by other cord complications, not applicable or unspecified; Z3A.41 41 weeks gestation of pregnancy; Z87.898 Personal history of other specified conditions
CPT/HCPCS: 59025; 59050; 80307; 84112; 85025; 85027; 85461; 86780; 86850; 86900; 86901; 99221; G0378; J2790

== ENCOUNTER 2024-03-01 03:30 | Outpatient (CLI) | payer MEDICAID, SELFPAY ==
[2024-03-01 03:51] VITALS: BMI 22.8
[2024-03-01 03:58] VITALS: BP 108/71; PULSE 88; RESP 16; TEMP 36.2; O2SAT 98
--- NOTE | 2024-03-01 21:12 | OB.TRI.NOTE ---
HPI - General General Date of Admission: 03/01/24 Date of Service: 03/01/24 Chief Complaint: hit car door on abdomen HPI Narrative DEDE DUNN, is a 23 F who presents after hitting the car door on her hip and side of her abdomen. No pain, vb, lof. Feeling FM. [facility] Medical History (Updated 03/01/24 @ 21:[address] Eli Guy, DO) Seizures (Unknown) Asthma Fibromyalgia Migraine Anxiety Depression Home Medications ?Medication ?Instructions ?Recorded ?Last Taken ?Type 103-folic acid 400 1 tab PO DAILY 02/04/19 02/29/24 21:50 History mcg-omeg3 32.5 mg-dha-fish oil chew tablet ( with DHA and Folic Acid) cholecalciferol (vitamin D3) 50 2,000 unit PO DAILY 12/24/22 02/29/24 21:50 History mcg (2,000 unit) capsule (Vitamin D3) acetaminophen 500 mg tablet 1,000 mg (2 x 500 mg) PO Q6H PRN 01/01/23 Unknown Rx PRN Pain 1-10 Or Fever #0 tabs ibuprofen 600 mg tablet 600 mg PO Q6H PRN PRN Pain Score 01/01/23 Unknown Rx 1-10 #0 tabs doxylamine 10 mg-pyridoxine (vit 2 tab PO DAILY see provider 03/01/24 02/29/24 21:49 History B6) 10 mg tablet,delayed release (Diclegis) magnesium 200 mg tablet 400 mg PO DAILY see provid 03/01/24 02/29/24 21:51 History Allergy/AdvReac Type Severity Reaction Status Date / Time adhesive tape Allergy Rash Verified 03/01/24 03:48 escitalopram (From Lexapro) Allergy Unknown Verified 03/01/24 03:48 Latex, Natural Rubber Allergy Rash Verified 03/01/24 03:48 lettuce Allergy Food Verified 03/01/24 03:48 Allergy milk Allergy Upset Verified 03/01/24 03:48 Stomach sulfamethoxazole (From Allergy Other Verified 03/01/24 03:48 Bactrim) trimethoprim (From Bactrim) Allergy Other Verified 03/01/24 03:48 Surgical History (Updated 12/31/22 @ 05:03 by Tala Harper) History of surgery [place] teeth extracted Social History (Updated 07/06/22 @ 19:[address] Mark Hernandez, DO) Smoking Status: Never smoker substance use type: does not use History Elective abortions Hx Para 1 Spontaneous abortions Hx # Term Pregnancies Ectopic pregnancies Hx # Pregnancies Multiple births # of living children NST FHR Rate Baby A Baseline: 130 Variability:: Moderate Accelerations:: None Decelerations:: None NST Reactive:: Appropriate for gestational age Uterine Activity:: none Assessment & Plan (1) 25 weeks gestation of : (2) Injury: PLAN: Reported car door hit her hip and side of abdomen over 4 hours ago. FHT appropriate for gestational age. No contractions or bleeding. D/c home.
== END 2024-03-01 04:25 | disposition home or self-care (01) ==
LOC: WPOUT 03:42 → WP 03:44
PROVIDERS: PCP Pediatrics; Referring Provider Obstetrics & Gynecology; Visit Provider Obstetrics & Gynecology
DX: O9A.212 Injury, poisoning and certain other consequences of external causes complicating pregnancy, second trimester (principal); J45.909 Unspecified asthma, uncomplicated; S39.91XA Unspecified injury of abdomen, initial encounter; W22.09XA Striking against other stationary object, initial encounter; O99.512 Diseases of the respiratory system complicating pregnancy, second trimester; Z3A.25 25 weeks gestation of pregnancy
CPT/HCPCS: 59025; 59050; 99221; G0378

== ENCOUNTER 2024-04-02 17:24 | Emergency (ER) | payer MEDICAID, SELFPAY ==
[2024-04-02 17:25] VITALS: BP 117/75; PULSE 78; RESP 16; TEMP 36.6; O2SAT 99; BMI 23.9
--- NOTE | 2024-04-02 17:27 | ED.RN ---
OB CALLED FOR PATIENT C/O HEADACHE AND THAT SHE WASN'T SURE IF SHE SHOULD BE SEEN D/T BEING TOLD TO COME IN FOR WORSENING HEADACHES. I WAS TOLD BY OB CHARGE THAT THE PATIENT DID NOT NEED TO BE EVALUATED BASED ON SYMPTOM OF WORSENING HEADACHE W/O ANY OTHER COMPLAINTS. PATIENT VITAL SIGNS OBTAINED IN TRIAGE. PATIENT INFORMED ME THAT I DON'T THINK I SHOULD BE SEEN SINCE MY BLOOD PRESSURE IS NORMAL AND I GET HEADACHES ALL THE TIME. REGISTRATION CALLED AT THIS TIME.
--- NOTE | 2024-04-02 17:32 | ED.RN ---
PATIENT RETURNED TO TRIAGE ROOM, I CHANGED MY MIND. I WOULD NOW LIKE TO BE SEEN.
[2024-04-02] MEDS: 0.9% Normal Saline (1000mL) 1,000 ML 999 ML IV (18:51)
[2024-04-02] MEDS: DiphenhydrAMINE 50 MG/ML Syringe 25 MG IV (18:51)
[2024-04-02] MEDS: Metoclopramide 10 MG/2 ML Vial IV (18:51)
--- NOTE | 2024-04-02 20:01 | EX.ED.VIS.HA ---
HPI History of Present Illness Chief Complaint: Headache Detail of Chief Complaint: Migraine with aura, chronic status Informant: patient Onset/Context/Timing Onset: Month(s) Timing: Continuous and Waxes and wanes Quality -Headache: Positive for Other (This headache is worse.) Location: Global Current Severity: Severe Maximum Severity: Severe Worsened by: Right Relieved by: Nothing Associated Symptoms/Injury Associated Symptoms: Positive for Nausea, Preceding Aura, Visual Changes, Blurred Vision and Photophobia; Negative for Fever, Vomiting, Sore Throat, Sinus Pressure, Numbness, Tingling or Visual Loss Injury - MENDOZA: Negative for Direct Trauma Narrative Narrative: Patient is a 23-year-old female who has daily headaches due to intractable migraine with aura and status. She contacted her OB and her neurologist. There was concern she may have preeclampsia since she is 30 weeks gestation and the fact that this headache is different. She does endorse photophobia. She does endorse changes in her vision which she has had before. She denies neck pain or neck stiffness. Denies trouble with speech or swallowing. She denies cardiac or respiratory symptoms. Her only GI symptom is nausea. She denies urologic symptoms other than frequency. She denies myalgias or arthralgias. She denies paresthesia, anesthesia or motor weakness. She denies problems with balance or coordination. Prior similar symptoms: Yes Recent Illness/Hospitalization: No [facility] Medical History Seizures (Unknown) Asthma Fibromyalgia Migraine Anxiety Depression Home Medications ?Medication ?Instructions ?Recorded ?Last Taken ?Type 103-folic acid 400 1 tab PO DAILY 02/04/19 02/29/24 21:50 History mcg-omeg3 32.5 mg-dha-fish oil chew tablet ( with DHA and Folic Acid) cholecalciferol (vitamin D3) 50 2,000 unit PO DAILY 12/24/22 02/29/24 21:50 History mcg (2,000 unit) capsule (Vitamin D3) acetaminophen 500 mg tablet 1,000 mg (2 x 500 mg) PO Q6H PRN 01/01/23 Unknown Rx PRN Pain 1-10 Or Fever #0 tabs ibuprofen 600 mg tablet 600 mg PO Q6H PRN PRN Pain Score 01/01/23 Unknown Rx 1-10 #0 tabs doxylamine 10 mg-pyridoxine (vit 2 tab PO DAILY see provider 03/01/24 02/29/24 21:49 History B6) 10 mg tablet,delayed release (Diclegis) magnesium 200 mg tablet 400 mg PO DAILY see provid 03/01/24 02/29/24 21:51 History Allergy/AdvReac Type Severity Reaction Status Date / Time adhesive tape Allergy Rash Verified 04/02/24 17:33 escitalopram (From Lexapro) Allergy Unknown Verified 04/02/24 17:33 Latex, Natural Rubber Allergy Rash Verified 04/02/24 17:33 lettuce Allergy Food Verified 04/02/24 17:33 Allergy milk Allergy Upset Verified 04/02/24 17:33 Stomach sulfamethoxazole (From Allergy Other Verified 04/02/24 17:33 Bactrim) trimethoprim (From Bactrim) Allergy Other Verified 04/02/24 17:33 Surgical History History of surgery [place] teeth extracted Social History Smoking Status: Never smoker substance use type: does not use ROS ROS ED Constitutional Constitutional ED: Denies chills, fever(s), subjective, sweats or weight loss Eyes Eyes: Reports change in vision bilateral; Denies blurry vision or diplopia ENT ENT ED: Denies ear pain or rhinorrhea Cardiovascular Cardiovascular: Denies chest pain or palpitations Respiratory/Chest Respiratory/Chest: Denies cough, dyspnea or dyspnea on exertion Gastrointestinal Gastrointestinal: Reports nausea; Denies abdominal pain, constipation or vomiting Genitourinary Genitourinary ED: Reports urinary frequency; Denies dysuria or hematuria Musculoskeletal Musculoskeletal: Denies arthralgias, back pain, myalgias or neck pain Integumentary Denies rash Neurologic Neurologic: Denies headache(s), paresthesias or weakness Psychiatric Psychiatric: Denies anxiety or depression Hematologic/Lymphatic Hematologic/Lymphatic: Denies easy bleeding or easy bruising EXAM Physical Exam Const Vital Signs: 04/02/24 17:25 Temperature 98 F Temperature Source Temporal Pulse Rate 78 Respiratory Rate 16 Blood Pressure 117/75 Blood Pressure Mean 89 Pulse Ox 99 Oxygen Delivery Method Room Air Positive well nourished and well developed General Appearance ED: well developed and NAD; Negative for cyanotic, diaphoretic or pallor HEENT Reports TM's clear and moist mucous membranes; Denies normocephalic atraumatic; Negative for tenderness, temporal artery tenderness or vesicular rash Face and Sinus: Negative for sinus tenderness Tympanic Membrane ED: Yes TM's clear Eyes PERRL and EOMs intact bilaterally Eyes Narrative: There is no nystagmus. There is no papilledema General Eye ED: Negative for pale conjunctiva or scleral icterus Neck No no lymphadenopathy, No supple, No no meningeal signs and No no JVD Resp normal respiratory effort and clear to auscultation bilaterally Cardio regular rate, regular rhythm, S1 normal heart sound, S2 normal heart sound and no murmurs Back/Spine no CVA tenderness Extremity normal to inspection, full ROM and normal capillary refill Neuro oriented x3, CN's II-XII intact bilaterally and no sensory deficits noted Juani Coma Scale: document GCS findings Spontaneous Obeys Commands Oriented 15 Sensorium / Orientation: awake and alert Coordination / Balance: [id number] test normal Speech: speech normal Gait (Neuro): normal gait Motor Exam: strength 5/5 throughout Psych mental status grossly normal Skin General Skin Exam: elasticity normal and turgor normal; Negative for jaundice or pallor Lesions: no lesions Rashes: no rashes MDM MDM MDM Narrative Medical decision making narrative: Patient with exacerbation of her chronic migraine headache with aura that is intractable and status. Patient's blood pressure is normal. There is no concern for eclampsia. There is no hyperreflexia. There is no clonus at the ankles. There is no edema of the lower extremity. Because patient is she was treated with IV Benadryl and Reglan. She was reassessed at 1999. She reports significant improvement. Her headache is not resolved. She states she always has a headache. Discharge Plan Triage Chief Complaint: Headache ED Provider: Veto Dominguez Dx/Rx/DC Orders Clinical Impression: Headache, chronic migraine without aura, intractable, with status, Third trimester Instructions: ED, Migraine (Classical) Prescriptions: No Action with DHA-Folic Acid 1 EACH tablet,chewable 1 tab PO DAILY cholecalciferol (vitamin D3) [Vitamin D3] 50 mcg (2,000 unit) capsule 2,000 unit PO DAILY Patient Comments: Take 1 capsule by mouth once daily. ibuprofen 600 mg Tablet 600 mg PO Q6H PRN PRN (Reason: Pain Score 1-10) Qty: 0 0RF acetaminophen 500 mg Tablet 1,000 mg PO Q6H PRN PRN (Reason: Pain 1-10 Or Fever) Qty: 0 0RF doxylamine-pyridoxine (vit B6) [Diclegis] 10-10 mg tablet,delayed release (DR/EC) 2 tab PO DAILY magnesium 200 mg tablet 400 mg PO DAILY Primary Care Provider: Peter Mcdermott Referrals: Peter Mcdermott DO [Primary Care Provider] - As Needed Print Language: Turkish Disposition Disposition: Home, Self Care
[2024-04-02 20:29] VITALS: BP 105/63; PULSE 98; RESP 16; TEMP 37.1; O2SAT 98
== END 2024-04-02 20:35 | disposition home or self-care (01) ==
PROVIDERS: Emergency Provider Emergency Medicine; PCP Pediatrics; Visit Provider Emergency Medicine
DX: O99.353 Diseases of the nervous system complicating pregnancy, third trimester (principal); G43.719 Chronic migraine without aura, intractable, without status migrainosus; Z3A.30 30 weeks gestation of pregnancy
CPT/HCPCS: 96361; 96374; 96375; 99283; J7030; A4216

== ENCOUNTER 2024-06-18 18:10 | Inpatient (IN) | payer MEDICAID, SELFPAY ==
[2024-06-18] VITALS (10 sets, daily range): BP systolic 117–124; BP diastolic 64–81; PULSE 94–118; RESP 16–17; TEMP 36.1–36.6; O2SAT 92–98; BMI 25.4
[2024-06-18 04:32] LABS: ROM Internal Control Test YES-OK TO RESULT pt. (Internal QC); ROM Patient Test Negative (Negative)
[2024-06-18 18:06] LABS: ROM Internal Control Test YES-OK TO RESULT pt. (Internal QC)
[2024-06-18 18:08] LABS: ROM Patient Test POSITIVE (Negative)
[2024-06-18] MEDS: Lactated Ringers 1,000 ML 50 ML IV (18:50)
[2024-06-18 19:08] LABS: Absolute Lymphocyte Count 2.29 X10^3/uL (0.83-4.51); Absolute Neutrophil Count 8.7 X10^3/uL (2.0-7.7); Basophil# 0.03 X10^3/uL; Basophil% 0.2 % (0-1); Eosinophils% 0.8 % (0-5); Hematocrit 36.1 % (37-47); Hemoglobin 11.9 g/dL (12.0-15.0); Lymphocyte # 2.29 X10^3/ul (0.83-4.51); Lymphocyte % 19.1 % (19-41); Mean Corpuscular Hgb 28.7 pg (27.0-32.0); Mean Platelet Vol. 9.8 fl (6.2-12.0); Monocyte# 0.81 X10^3/uL; Monocyte% 6.7 % (0-10); NRBC Flagged by Analyzer 0 % (0-5); Neutrophil # 8.72 X10^3/uL (2.7-7.7); Neutrophil % 72.6 % (47-70); Platelet Count 244 K/mm3 (150-450); RBC Distribution Width CV 14.1 % (11.6-14.6); RBC Distribution Width SD 44.7 fl (35.1-43.9); Red Blood Count 4.15 M/mm3 (4.2-5.4)
[2024-06-18] MEDS: Oxytocin 15 Units/NS 250ml 15 UNITS/250 ML IV.SOLN 2 UNITS IV (19:40)
[2024-06-18 20:56] LABS: Syphilis Antibodies Non-reactive
[2024-06-19] VITALS (45 sets, daily range): BP systolic 104–125; BP diastolic 55–93; PULSE 89–124; RESP 16–18; TEMP 36.2–37.2; O2SAT 94–99
--- NOTE | 2024-06-19 01:23 | HP.PCM.OB_ITS ---
HPI - General General Date of Admission: 06/18/24 Date of Service: 06/18/24 HPI Narrative DEDE DUNN, is a 23 F who presents with LOF. Maternal Data Information ZURI Calculator Estimated Delivery Date Method Current WG Current Estimate 06/11/24 Manual 41w 1d [facility] Medical History Seizures (Unknown) Asthma Fibromyalgia Migraine Anxiety Depression Medical History no medical history Home Medications ?Medication ?Instructions ?Recorded ?Last Taken ?Type 103-folic acid 400 1 tab PO DAILY 02/04/19 06/18/24 01:00 History mcg-omeg3 32.5 mg-dha-fish oil chew tablet ( with DHA and Folic Acid) cholecalciferol (vitamin D3) 50 2,000 unit PO DAILY 12/24/22 06/18/24 01:00 History mcg (2,000 unit) capsule (Vitamin D3) doxylamine 10 mg-pyridoxine (vit 2 tab PO DAILY see provider 03/01/24 06/18/24 01:00 History B6) 10 mg tablet,delayed release (Diclegis) magnesium 200 mg tablet 400 mg PO DAILY see provid 03/01/24 06/18/24 01:00 H istory ascorbic acid (vitamin C) 1,000 mg 3,000 mg PO DAILY 06/18/24 06/18/24 01:00 History tablet (Vitamin C) Allergy/AdvReac Type Severity Reaction Status Date / Time adhesive tape Allergy Rash Verified 06/18/24 20:18 escitalopram (From Lexapro) Allergy Unknown Verified 06/18/24 20:18 Latex, Natural Rubber Allergy Rash Verified 06/18/24 20:18 lettuce Allergy Food Verified 06/18/24 20:18 Allergy milk Allergy Upset Verified 06/18/24 20:18 Stomach sulfamethoxazole (From Allergy Other Verified 06/18/24 20:18 Bactrim) trimethoprim (From Bactrim) Allergy Other Verified 06/18/24 20:18 Family History no significant family his Surgical History History of surgery [place] teeth extracted Surgical History no surgical history Social History Smoking Status: Never smoker substance use type: does not use History Elective abortions Hx Para 3 Spontaneous abortions Hx # Term Pregnancies Ectopic pregnancies Hx # Pregnancies Multiple births # of living children Vital Signs Vital Signs Vital Signs: 06/18/24 03:34 06/18/24 03:34 06/18/24 03:34 Temperature Temperature Source Pulse Rate 118 H Respiratory Rate Blood Pressure 118/73 BP Systolic 118 BP Diastolic 73 Pulse Ox 97 06/18/24 03:36 06/18/24 03:36 06/18/24 03:36 Temperature 97.0 F L Temperature Source Temporal Pulse Rate Respiratory Rate 16 Blood Pressure BP Systolic BP Diastolic Pulse Ox 06/18/24 17:43 06/18/24 17:43 06/18/24 17:43 Temperature Temperature Source Tympanic Pulse Rate 104 H Respiratory Rate Blood Pressure 117/70 BP Systolic 117 BP Diastolic 70 Pulse Ox 06/18/24 17:43 06/18/24 17:43 06/18/24 19:20 Temperature 97.6 F L Temperature Source Pulse Rate 104 H Respiratory Rate Blood Pressure 121/81 H BP Systolic 121 BP Diastolic 81 Pulse Ox 06/18/24 19:20 06/18/24 19:20 06/18/24 19:20 Temperature Temperature Source Pulse Rate 103 H 102 H Respiratory Rate Blood Pressure BP Systolic BP Diastolic Pulse Ox 92 06/18/24 19:20 06/18/24 19:20 06/18/24 19:20 Temperature Temperature Source Temporal Pulse Rate Respiratory Rate 16 Blood Pressure BP Systolic BP Diastolic Pulse Ox 98 06/18/24 19:20 06/18/24 20:54 06/18/24 20:54 Temperature 97.8 F Temperature Source Pulse Rate 94 Respiratory Rate Blood Pressure 118/74 BP Systolic 118 BP Diastolic 74 Pulse Ox 06/18/24 20:55 06/18/24 20:55 06/18/24 20:55 Temperature 97.5 F L Temperature Source Temporal Pulse Rate Respiratory Rate 17 Blood Pressure BP Systolic BP Diastolic Pulse Ox 06/18/24 22:07 06/18/24 22:07 06/18/24 22:07 Temperature 97.7 F L Temperature Source Temporal Pulse Rate Respiratory Rate 17 Blood Pressure BP Systolic BP Diastolic Pulse Ox 06/18/24 22:12 06/18/24 22:12 06/18/24 23:31 Temperature Temperature Source Temporal Pulse Rate 98 Respiratory Rate Blood Pressure 124/71 H BP Systolic 124 BP Diastolic 71 Pulse Ox 06/18/24 23:31 06/18/24 23:31 06/18/24 23:32 Temperature 97.8 F Temperature Source Pulse Rate Respiratory Rate 17 Blood Pressure 121/64 H BP Systolic 121 BP Diastolic 64 Pulse Ox 06/18/24 23:32 06/18/24 23:32 06/19/24 01:00 Temperature Temperature Source Pulse Rate 98 123 H Respiratory Rate Blood Pressure BP Systolic BP Diastolic Pulse Ox 98 06/19/24 01:00 06/19/24 01:00 06/19/24 01:00 Temperature Temperature Source Temporal Pulse Rate Respiratory Rate 18 Blood Pressure BP Systolic BP Diastolic Pulse Ox 98 06/19/24 01:00 06/19/24 01:02 06/19/24 01:02 Temperature 98.9 F Temperature Source Pulse Rate 121 H Respiratory Rate Blood Pressure 118/75 BP Systolic 118 BP Diastolic 75 Pulse Ox 06/19/24 01:21 06/19/24 01:21 Temperature Temperature Source Pulse Rate 101 H Respiratory Rate Blood Pressure BP Systolic BP Diastolic Pulse Ox 99 Weight Weight: 172 lb 12.8 oz Body Mass Index (BMI) 25.4 Physical Exam Const alert and oriented x3 GI soft to palpation, non-tender and non-distended Inspection: gravid external exam normal Narrative: cvx - 4/70/-3 Labs Labs Labs: Blood Type O NEGATIVE Antibody Screen NEGATIVE Hct 36.1 % (37-47) L Hgb 11.9 g/dL (12.0-15.0) L Syphilis Total Ab Non-reactive Rhogam given: Yes Assessment & Plan (1) 41 weeks gestation of : COMMENT: @ 41 weeks PLAN: Admit to L&D SROM - TAUS confirms vtx but station high. Will start pitocin. GBS negative EFW - less than 4500g and patient with adequate pelvis Pain management - declines at this time Routine care
--- NOTE | 2024-06-19 01:28 | EX.PCM.OBRPT ---
Maternal Data Information ZURI Calculator Estimated Delivery Date Method Current WG Current Estimate 06/11/24 Manual 41w 1d Vaginal Delivery Maternal Presentation Maternal Presentation: Spontaneous Rupture of Membranes Type of Induction: Pitocin Operative Information Date of Procedure: 06/19/24 Pre-Operative Diagnosis: SROM Post-Operative Diagnosis: SROM Surgery / Procedure Performed: Spontaneous Vaginal Delivery Type of Anesthesia: None Estimated Blood Loss: 200ml Findings Description of Procedure: Patient draped when C/C/+2. She pushed well to deliver the head. head gently guided to allow delivery of anterior and posterior shoulders. No excess traction placed on head. Body delivered and 3VC clamped & cut in delayed fashion. Placenta delivered with gentle traction and good uterine tone obtained. Presentation: SONI Amniotic Membrane Rupture Type: Spontaneous Amniotic Fluid Description: Clear Placental Delivery Description: Expressed Placenta Disposition: [facility] Specimen(s) Removed: Placenta Cord Vessel Description: 3 Vessels Cord Entanglement: None A Gender: Female (1 minute): 8 (5 minute): 8 Delayed Cord Clamping: Yes Post Vaginal Delivery Medications Given After Delivery: IV Pitocin Episiotomy Description: None Laceration: None Complication Complications: None
[2024-06-19] MEDS: Oxytocin 15 Units/NS 250ml 15 UNITS/250 ML IV.SOLN 83 UNITS IV (01:46)
[2024-06-19] MEDS: Ibuprofen 600 MG Tablet PO ×4 (02:20→20:20)
[2024-06-19] MEDS: Acetaminophen 500 MG Tablet 1000 MG PO ×4 (05:26→23:43)
[2024-06-19] MEDS: Rho(D) Immune Globulin 300 MCG (1500 Unit) Syringe IV (05:26)
--- NOTE | 2024-06-19 14:07 | CASEMGMT ---
Social Work Labor and Delivery Unit Date/Time of referral: 06/19/2024, 4:25am Referred by: Cory Bullard MD Date/Time of intervention: 06/19/24, 1:30pm Reason for referral: MH History obtained from: MOB and BIGG. SW asked BIGG to leave for part of assessment, MOB stated he could stay so he was present for the full conversation. Household composition: MOB, BIGG, and now four children--ages 5, 3, 1 and now baby Deya Schmitt. WILLIAN and BIGG have been together for 7 years, for 6. Medical history: MOB: history of seizures, asthma, fibromyalgia, migraines, anxiety and depression. Baby: Born 06/19/24 at 1:10am, Apgars 8&8 at one and five minutes, 3525 grams at . Educational Status: Both WILLIAN and BIGG completed some college Financial Status: BIGG is a computer systems software architect. 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 They are trying to get a car repaired and could use some help w/paying for the repairs. They are managing but state things are very expensive at this moment. supplies: They have all needed supplies including crib, bassinet, clothing, diapers, wipes, and access to formula if needed. WILLIAN plans to breast feed. Childcare/Caregivers: WILLIAN and BIGG state they live on the same property as BIGG's parents, and BIGG's brothers and sisters. All are supportive and help w/the children. They see living here as very much a support for them and their family, expressed multiple times how grateful they are to live so near family. Transportation: They do have two vehicles Programs/Agencies involved: [facility], [facility] Children's services/legal issues: None Behavioral Health issues: Substance abuse: FOB--none. WILLIAN--had history of substance abuse when a teen, has been clean for 8 years. No tox screens completed on this admission for MOB or baby. Mental Health: FOB--none. MOB--PHQ-9 score was an 8. M attributes most of the symptoms captured in this as due to her being 9 months and just having a baby. WILLIAN confirms history of depression and anxiety, states her symptoms were well managed during the . She states had a day here and there of feeling sad but then came back from it. She states had also moments of feeling down, her helped her through it. She did not seek counseling or medication during these times. She states has been in counseling but not since a teenager, did not find it helpful. She states also has been on medication however did not find it helped, has not tried medication any time recently. MOB overall reports her depression and anxiety to be managed, states her and his family's support helps a lot. Family/Social Stressors: They report none Support Systems: FOB's extended family as mentioned above, as well as MOB's family--parents and siblings who live in [place]. Depression and Anxiety/Shaken Baby/Safe Sleeping/Help Me Grow/[facility] Resources/[facility] resources/ resources and hotlines: SW gave information and reviewed information on all of these topics. SW reviewed in particular information on depression and warning signs, encouraged MOB to speak w/physician should she be having symptoms. MOB asked for information on car repair programs, SW spoke w/her about [employer]. MOB states there is a program through [facility] she wa told she needs to apply for first and if she is denied, then can work w/[employer]. SW did find the information on the [facility] website, called [facility], printed and provided the information to her. Assessment: MOB and FOB were both open w/SW, answered all questions, maintained eye contact. Baby was laying on the bed in front of MOB, she was appropriate in all interaction w/baby. Plan: Baby to go home w/MOB and FOB and family, no further needs anticipated. LATASHA Baker
[2024-06-20] MEDS: Ibuprofen 600 MG Tablet PO ×3 (02:14→15:28)
[2024-06-20 02:15] VITALS: BP 126/71; PULSE 82; RESP 16; TEMP 36.7
[2024-06-20 02:16] VITALS: BP 126/71; PULSE 82
[2024-06-20 08:23] VITALS: BP 110/83; PULSE 90
[2024-06-20 08:25] VITALS: RESP 16
--- NOTE | 2024-06-20 08:31 | PCM.PN.OB ---
Subjective Subjective Doing well. Ambulating and voiding without difficulty. Mild lochia. Breast feeding. Objective Data Objective Data Vital Signs: Vital Signs Temp Pulse Resp BP Pulse Ox O2 Del Method 98.0 F 90 16 110/83 H 98 Room Air 06/20/24 02:15 06/20/24 08:23 06/20/24 02:15 06/20/24 08:23 06/19/24 20:24 06/19/24 20:24 Oxygen Delivery Method Room Air Weight: 78.381 kg Body Mass Index (BMI) 25.4 Intake & Output: Intake and Output for Last 24 Hours 06/18/24 06/19/24 06/20/24 23:59 23:59 23:59 Intake Total 4.4 / 4.4 1389.13 / 1389.13 Output Total 700 / 700 1450 / 1450 Balance -695.6 / -695.6 -60.87 / -60.87 Lab / Micro Data 06/18/24 18:50 ROS Constitutional Constitutional: Denies fatigue, fever(s) or malaise Eyes Eyes: Denies change in vision ENT HEENT: Denies dizziness or headache(s) Cardiovascular Cardiovascular: Denies chest pain, dyspnea or lightheadedness Respiratory/Chest Respiratory/Chest: Denies cough or dyspnea Gastrointestinal Gastrointestinal: Denies change in bowel habits Genitourinary Genitourinary: Denies burning urination or genital lesions Integumentary Integumentary: Denies rash Neurologic Neurologic: Denies confusion, dizziness, headache(s), numbness or weakness Physical Exam Const alert and no apparent distress Narrative: Fundus firm, below umbilicus. Assessment & Plan (1) (normal spontaneous vaginal delivery): (2) Lactating mother: PLAN: Plan Discharge home
--- NOTE | 2024-06-20 08:35 | PCM.DC.SUM ---
Providers Date of Admission: 06/18/24 Date of Discharge: 06/20/24 Primary Care Physician: Dr. Peter Mcdermott DO Reason For Visit: VAG Diagnosis Discharge Diagnosis (1) (normal spontaneous vaginal delivery): Status: Acute Code(s): O80 - Encounter for full-term uncomplicated delivery (2) Lactating mother: Status: Acute Code(s): Z39.1 - Encounter for care and examination of lactating mother Plan Discharge home Medications at Discharge Home Medications 103-folic acid 400 mcg-omeg3 32.5 mg-dha-fish oil chew tablet ( with DHA and Folic Acid) 1 tab PO DAILY 02/04/19 cholecalciferol (vitamin D3) 50 mcg (2,000 unit) capsule (Vitamin D3) 2,000 unit PO DAILY 12/24/22 magnesium 200 mg tablet 400 mg PO DAILY see provid 03/01/24 ascorbic acid (vitamin C) 1,000 mg tablet (Vitamin C) 3,000 mg PO DAILY 06/18/24 acetaminophen 500 mg tablet 1,000 mg (2 x 500 mg) PO Q6H PRN PRN Pain 1-10 Or Fever #60 tabs 06/20/24 ibuprofen 600 mg tablet 600 mg PO Q6H PRN PRN Pain Score 1-10 #60 tabs 06/20/24 Hospital Course Operations None Procedures None Summary of Care Provided Minutes Spent on Discharge: 21 Hospital Course: Normal without complication. Breast feeding on discharge Physical Exam Const alert and no apparent distress Narrative: Fundus firm, below umbilicus. Weight / BMI Weight Weight: 78.381 kg Body Mass Index (BMI) 25.4 ABG / Lab / Microbiology Data 06/18/24 18:50 D/C Instructions May resume sexual activity in: 6 weeks Please Follow Up With: Nadine Boyle MD When: Follow up with our office in 1-2 and 6 weeks or as needed. [phone] Meaningful Use Info Meaningful Use Meaningful Use Diagnoses (Choose all that apply): None applicable Ischemic Stroke Statin Dosing Therapy Reference: STATIN DOSE THERAPY REFERENCE: * Patients > 75 years receive moderate or high dose statin therapy. * Patients 75 years or YOUNGER should receive HIGH intensity statin dose unless contraindicated. You will be required to document reason for non-treatment if statin daily dose does not meet guidelines. HIGH DOSE STATIN THERAPY DAILY Atorvastatin > than or = to 40 mg Rosuvastatin > than or = to 20 mg Amlodipine + Atorvastatin > than or = to 2.5/40 mg Ezetimibe + Simvastatin 10/80 mg Simvastatin 80mg Discharge Plan Admission Admit Date/Time: 06/18/24 18:10 Primary Reason for Your Visit: labor Attending Provider: Aleah Ray Primary Care Provider: Peter Mcdermott Discharge Orders/Prescriptions Prescriptions: New acetaminophen 500 mg Tablet 1,000 mg PO Q6H PRN PRN (Reason: Pain 1-10 Or Fever) Qty: 60 0RF ibuprofen 600 mg Tablet 600 mg PO Q6H PRN PRN (Reason: Pain Score 1-10) Qty: 60 0RF Continued with DHA-Folic Acid 1 EACH tablet,chewable 1 tab PO DAILY cholecalciferol (vitamin D3) [Vitamin D3] 50 mcg (2,000 unit) capsule 2,000 unit PO DAILY Patient Comments: Take 1 capsule by mouth once daily. ascorbic acid (vitamin C) [Vitamin C] 1,000 mg tablet 3,000 mg PO DAILY magnesium 200 mg tablet 400 mg PO DAILY Discontinued doxylamine-pyridoxine (vit B6) [Diclegis] 10-10 mg tablet,delayed release (DR/EC) 2 tab PO DAILY Referrals / Follow Up: Peter Mcdermott DO [Primary Care Provider] - Disposition Disposition (needs filled in before D/C Order can be placed): Home, Self Care
[2024-06-20] MEDS: Acetaminophen 500 MG Tablet 1000 MG PO (10:51)
--- NOTE | 2024-06-22 17:35 | OB.TRI.HP_ITS ---
HPI - General General Date of Admission: 06/18/24 Date of Service: 06/18/24 HPI Narrative DEDE DUNN, is a 23 F who presents with leakage of fluid and possible SROM. Maternal Data Information ZURI Calculator Estimated Delivery Date Method Current WG Current Estimate 06/11/24 Manual 41w 4d PFSH PFS Medical History Seizures (Unknown) Asthma Fibromyalgia Migraine Anxiety Depression Medical History no medical history Home Medications ?Medication ?Instructions ?Recorded ?Last Taken ?Type 103-folic acid 400 1 tab PO DAILY 02/04/19 06/18/24 01:00 History mcg-omeg3 32.5 mg-dha-fish oil chew tablet ( with DHA and Folic Acid) cholecalciferol (vitamin D3) 50 2,000 unit PO DAILY 12/24/22 06/18/24 01:00 History mcg (2,000 unit) capsule (Vitamin D3) magnesium 200 mg tablet 400 mg PO DAILY see provid 03/01/24 06/18/24 01:00 History ascorbic acid (vitamin C) 1,000 mg 3,000 mg PO DAILY 06/18/24 06/18/24 01:00 History tablet (Vitamin C) acetaminophen 500 mg tablet 1,000 mg (2 x 500 mg) PO Q6H PRN 06/20/24 Unknown Rx PRN Pain 1-10 Or Fever #60 tabs ibuprofen 600 mg tablet 600 mg PO Q6H PRN PRN Pain Score 06/20/24 Unknown Rx 1-10 #60 tabs Allergy/AdvReac Type Severity Reaction Status Date / Time adhesive tape Allergy Rash Verified 06/18/24 20:18 escitalopram (From Lexapro) Allergy Unknown Verified 06/18/24 20:18 Latex, Natural Rubber Allergy Rash Verified 06/18/24 20:18 lettuce Allergy Food Verified 06/18/24 20:18 Allergy milk Allergy Upset Verified 06/18/24 20:18 Stomach sulfamethoxazole (From Allergy Other Verified 06/18/24 20:18 Bactrim) trimethoprim (From Bactrim) Allergy Other Verified 06/18/24 20:18 Family History no significant family his Surgical History History of surgery [place] teeth extracted Surgical History no surgical history Social History Smoking Status: Never smoker substance use type: does not use History Elective abortions Hx Para 3 Spontaneous abortions Hx # Term Pregnancies Ectopic pregnancies Hx # Pregnancies Multiple births # of living children NST FHR Rate Baby A Baseline: 125 Variability:: Moderate Accelerations:: 15 x 15 Decelerations:: None FHR Category:: Category I Uterine Activity:: Irregular, mild Assessment & Plan (1) Vaginal discharge: PLAN: Plan 1) ROM plus negative 2) D/C home
--- NOTE | 2024-06-26 14:08 | NURSING ---
Follow up phone call made, patient states she is doing ok. States that she is still cramping quite a bit. Discussed with patient about cramping after delivery can last several days, patient states understanding. Encouraged patient to call OB office for cramping, patient states she will call Saturday if the cramping does not get better over the weekend. States is going well. Denies any questions or concerns at this time.
== END 2024-06-20 16:27 | disposition home or self-care (01) | DRG 560 ==
LOC: WPOUT 18:23 → WP 18:23
PROVIDERS: Advanced Practice Midwife; Admitting Provider Obstetrics & Gynecology; PCP Pediatrics; Referring Provider Obstetrics & Gynecology; Visit Provider Obstetrics & Gynecology
DX: O42.92 Full-term premature rupture of membranes, unspecified as to length of time between rupture and onset of labor (principal); Z37.0 Single live birth; O48.0 Post-term pregnancy; Z3A.41 41 weeks gestation of pregnancy
CPT/HCPCS: 59025; 59050; 84112; 85025; 85461; 86780; 86850; 86900; 86901; 90384; 99221; J7120; G0378; J2790; J2791